=== PATIENT | female | born 1955 | race African-American/Black ===

== ENCOUNTER → 2016-12-31 | Outpatient (CLI) | payer MEDICARE ==
[~2016-12-31] MED LIST: AMLO5TAB2 PO; ASPI-482 PO; ATOR10TA60 PO; DICL1PAT4 TP; DICL75TA PO; IOHEXOL 180 MG/ML 10 ML VIAL. ONE; LEVE500T6 PO; LOSA1TAB17 PO; METH-37 PO; PREG100C PO; methylPREDNISolone ACETATE 40 MG/ML VIAL. ONE; methylPREDNISolone ACETATE 80 MG/ML VIAL. ONE
--- NOTE | 2017-01-01 12:11 | PAIN ---
DATE OF SERVICE: 12/31/2016 PROGRESS NOTE FOR PAIN CLINIC DIAGNOSES: Lumbar radiculopathy with lumbar degenerative disk disease. HISTORY OF PRESENT ILLNESS: The patient is a 61-year-old female who returns for followup status post lumbar epidural steroid injections, most recently seen in 07/2016. The patient did very well with approximately 75% improvement for about 4 months but the pain has began to return now on the low back, right lower extremity, it was previously the patient reports that 10 on a scale of 10, worse with standing and worse with walking, has awakened her from sleep at night when she lays on her right side, radiating into the right lateral and anterior thigh to the medial lower leg and medial knee. The patient reports significant pain with changing positions, standing, walking and even sitting for prolonged periods and even driving in her car more than about an hour, the pain is beginning to return much more noticeable. The patient reports no symptoms on the left side with significant pain on the right as noted. The patient reports no loss of motor function. No bowel or bladder incontinence at this time or other complaints. PAST MEDICAL HISTORY: Significant for diabetes, hypertension, history of blood clots and seizures. PREVIOUS SURGERY: Include ablation in 2003. MEDICATIONS: The patient's medications were updated including, metformin, Lyrica, atorvastatin, diclofenac, Robaxin, Flector patch, losartan, daily baby aspirin, levetiracetam and amlodipine. ALLERGIES: THE PATIENT ALLERGIC TO MORPHINE, PENICILLIN, KEFLEX, ELAVIL AND TRAMADOL. FAMILY HISTORY: Significant for no major medical problems or conditions that she is aware of. SOCIAL HISTORY: The patient does not smoke, does not drink alcohol, reports she is still working and still lives locally. PHYSICAL EXAMINATION: VITAL SIGNS: The patient's blood pressure is 120/67, pulse 72, respirations 18, temperature 97.8 degrees Fahrenheit, weight is 239 pounds. GENERAL: The patient is awake, alert, oriented, appropriate, very pleasant demeanor. HEENT: Head shows normocephalic, atraumatic. Extraocular movements are intact and symmetrical. Oral cavity shows mucous membranes moist and pink. Dentition is intact. NECK: Shows anterior throat supple without asymmetry, without palpable lymphadenopathy noted and swallow reflex is symmetrical. CHEST: Shows normal on inspection. Breath sounds are clear to auscultation bilaterally. HEART: Shows S1 and S2 clear. No murmurs are auscultated. ABDOMEN: Soft, nontender, and nondistended. No palpable organomegaly. No rebound or guarding demonstrated. BACK: The patient's back shows spine grossly in midline. Normal appearing thoracic kyphosis and lumbar lordotic curvature. Lumbar paraspinous musculature shows some moderate tenderness with palpation, but diffusely only with deep palpation in the lower lumbar distribution, no radiation. There are no trigger points, no tenderness over the sacrum or sacroiliac regions. The patient shows good rotational motion of the lumbar spine, both laterally greater than 10 degrees right and left as well as extension greater than 10 degrees, and forward flexion at 45 degrees without significant pain reported. EXTREMITIES: The patient's lower extremities showed deep tendon reflexes at 1+ in the patellar and tendocalcaneus tendons. Motor exam is strong with 4/5 dorsiflexion and extension on the right and 5/5 on the left. Quadriceps and hamstring flexion was 5/5 and equal. Peripheral pulses are 1+ posterior tibial and dorsalis pedis pulses. No peripheral edema is noted. No clubbing, no cyanosis. Lower extremities are warm and dry to touch, equal in color and appearance. Straight leg raise noted to be mildly positive on the right side at about 45 degrees, which is decreased with knee flexion, left side is negative. Options were discussed with the patient and we will proceed with a lumbar epidural steroid injection today with fluoroscopic guidance as the patient has done very well with these in the past. Risks were again discussed including, but not limited to bleeding, infection, possibility of epidural hematoma and subsequent neurologic compromise, dural puncture, headaches, spinal cord and/or nerve damage, side effects of steroid medication and poor results regarding pain control. The patient understands and wishes to proceed. The patient will return to clinic in approximately 2 weeks for followup, counseled on return appointment, activity level, and side effects to be aware. DIAGNOSES: Lumbar radiculopathy with lumbar degenerative disk disease. PROCEDURE: Lumbar epidural steroid injection in translaminar approach at the L4-L5 level using C-arm fluoroscopic guidance under sterile prep and drape using local anesthetic. MEDICATIONS INJECTED: 120 mg Depo-Medrol plus 10 mL of preservative-free normal saline and 2 mL of Isovue for contrast. CONDITION AT DISCHARGE: Stable. The patient tolerated procedure well, had no complications. MARRY ROSE MD DR: Trevor JOB#: [id number] / [id number]
== END ==
LOC: PNCL 11:09
PROVIDERS: ATTEND Anesthesiology
DX: M51.16 Intervertebral disc disorders with radiculopathy, lumbar region (principal); E11.9 Type 2 diabetes mellitus without complications; I10 Essential (primary) hypertension
CPT/HCPCS: 62323; J1030; J1040

== ENCOUNTER → 2017-01-24 | Outpatient (CLI) | payer MEDICARE ==
[~2017-01-24] MED LIST changes: +METF500T4 PO; +PREG150C PO
--- NOTE | 2017-01-24 10:14 | PAIN ---
DATE OF SERVICE: 01/24/2017 DIAGNOSES: Lumbar radiculopathy with lumbar degenerative disk disease. HISTORY OF PRESENT ILLNESS: The patient is a 61-year-old female, who returns for followup status post lumbar epidural steroid injection x 1. The patient reports about 75% improvement until about a week ago, she was raking some leaves ____ for most of the day and lateral bending and stooping is increased pain again in her low back and right lower extremity, mostly in the lateral aspect of the right thigh across the low back into the left side of the back as well, has been significantly increased in the raking leaves, but the patient reports no new motor or sensory deficits, no new bowel or bladder incontinence or other complaints, still increased pain, worse with walking, standing, describes as stabbing, aching pain rated 10 on a scale 10 since the raking ____ and burning down into the legs, some in the left leg as well. PHYSICAL EXAMINATION: VITAL SIGNS: Shows blood pressure 114/68, pulse 77, respirations 18, temperature is 97.8 degrees Fahrenheit, weight is 249 pounds. GENERAL: The patient is awake, alert, oriented, appropriate, very pleasant demeanor. HEENT: Head shows normocephalic, atraumatic. Extraocular movements are intact and symmetrical. Oral cavity, mucous membranes are moist and pink. Dentition is intact. NECK: Shows anterior throat supple without palpable lymphadenopathy noted. Swallow reflex is symmetrical. CHEST: Shows normal on inspection. Breath sounds clear to auscultation bilaterally. HEART: Shows S1 and S2 clear. ABDOMEN: Obese, soft, nontender, nondistended. BACK: Shows spine grossly midline. Lumbar paraspinous muscle shows some moderate tenderness with palpation and very firm musculature throughout the upper, middle, lower distribution of paraspinous muscles, but without significant radiation. Muscle girth is normal, but very firm and again diffusely tender throughout. No tenderness over the sacrum and sacroiliac regions. EXTREMITIES: Lower extremities showed deep tendon reflexes at 1+ in the patellar and tendo calcaneus tendons are equal. Motor exam is approximately 4 on a scale of 5 with right dorsiflexion, extension and 5/5 on the left. Options were discussed with the patient and the patient's old chart was reviewed as her current medication regimen updated. Current review of systems updated today as well. We will proceed with a second lumbar epidural steroid injection today with fluoroscopic guidance. Risks were then discussed including, but not limited to bleeding, infection, possibility of epidural hematoma and subsequent neurologic compromise, dural puncture, headaches, spinal cord and/or nerve damage, side effects of steroid medication, exacerbation of current symptoms and poor results regarding pain control. The patient understands and wishes to proceed. The patient will return to clinic in approximately 2 weeks for followup, was counseled on return appointment, activity level and side effects to be aware of. DIAGNOSES: Lumbar radiculopathy with lumbar degenerative disk disease. PROCEDURE: Lumbar epidural steroid injection in translaminar approach at the L4-L5 level, using C-arm fluoroscopic guidance under sterile prep and drape and local anesthesia. MEDICATION INJECTED: 120 mg Depo-Medrol plus 10 mL preservative-free normal saline and 2 mL of Isovue for contrast. CONDITION AT DISCHARGE: Stable. The patient tolerated the procedure well, had no complications. MARRY ROSE MD DR: SHARON/jessenia JOB#: [id number] / [id number]
== END | disposition home or self-care (01) ==
LOC: PNCL 08:54
PROVIDERS: ATTEND Anesthesiology
DX: M51.16 Intervertebral disc disorders with radiculopathy, lumbar region (principal)
CPT/HCPCS: 62323; J1030; J1040

== ENCOUNTER → 2017-02-27 | Day surgery (SDC) | payer MEDICARE ==
[~2017-02-27] MED LIST changes: -IOHEXOL 180 MG/ML 10 ML VIAL. ONE; +IV RINGERS,LACTATED 1000ML 1,000 ML IV SCH; +PROPOFOL 40 ML IV ONE; +[UNRECOGNIZED DRUG - OTHER]; -methylPREDNISolone ACETATE 40 MG/ML VIAL. ONE; -methylPREDNISolone ACETATE 80 MG/ML VIAL. ONE
[2017-02-27 14:48] VITALS: BP 123/77
== END | disposition home or self-care (01) ==
LOC: ENDOS 13:02
PROVIDERS: ATTEND Internal Medicine Gastroenterology
DX: K64.0 First degree hemorrhoids (principal); K57.30 Diverticulosis of large intestine without perforation or abscess without bleeding; K56.2 Volvulus; K22.2 Esophageal obstruction; E66.9 Obesity, unspecified; M19.90 Unspecified osteoarthritis, unspecified site; Z98.51 Tubal ligation status
CPT/HCPCS: 43235; 43450; 45378; 82947; 99156; J2704

== ENCOUNTER → 2017-04-17 | Outpatient (CLI) | payer MEDICARE ==
[2017-02-27 14:48] VITALS: BP 123/77
[~2017-04-17] MED LIST changes: -DICL1PAT4 TP; +FLECTOR1 EACH TP; +IOHEXOL 180 MG/ML 10 ML VIAL. ONE; -IV RINGERS,LACTATED 1000ML 1,000 ML IV SCH; -PROPOFOL 40 ML IV ONE; +methylPREDNISolone ACETATE 40 MG/ML VIAL. ONE; +methylPREDNISolone ACETATE 80 MG/ML VIAL. ONE
--- NOTE | 2017-04-18 02:13 | PAIN ---
DATE OF SERVICE: 04/17/2017 PROGRESS NOTE FOR PAIN CLINIC DIAGNOSES: Lumbar radiculopathy with lumbar degenerative disk disease. HISTORY OF PRESENT ILLNESS: This is 61-year-old female who returns for followup status post lumbar epidural steroid injections x 2, last seen on 01/24/2017. The patient did very well and reports she did remarkably well with the pain in her low back and right lower extremity until about 3 weeks ago, the pain began to return and is about 75% of its original value and returning. The patient reports originally it was 75% better. Now she is having increased pain with walking, standing. It is a stabbing pain, shooting type alternating with aching and sharp pain coming on more unbearable. The patient reports it as a 10 on a scale of 10 at its worst, as a 7 at its least. The patient reports it has been awakening her from sleep at night. She has to reposition, take pain medicine at night, otherwise no new motor or sensory deficits or other complaints. PHYSICAL EXAMINATION: VITAL SIGNS: The patient's blood pressure is 123/73, pulse 84, respirations are 20, temperature 97.8 degrees Fahrenheit, and weight is 241 pounds. GENERAL: The patient is awake, alert, oriented, appropriate, very pleasant demeanor. HEENT: Head shows normocephalic, atraumatic. Extraocular movements are intact and symmetrical. Oral cavity, mucous membranes are moist and pink. Dentition is intact. NECK: Shows anterior throat supple without palpable lymphadenopathy noted. Swallow reflex is symmetrical. CHEST: Shows normal on inspection. Breath sounds clear to auscultation bilaterally. HEART: Shows S1 and S2 clear. ABDOMEN: Obese, soft, nontender, nondistended. No palpable organomegaly, no rebound or guarding demonstrated. BACK: Shows spine grossly midline. Lumbar paraspinous muscle shows some moderate tenderness with palpation, but symmetrical on inspection. The patient shows good rotational motion of the lumbar spine, both laterally as well as extension and flexion without significant pain reported, but some moderate tenderness with palpation in the lower lumbar distribution of paraspinous muscles diffusely without radiation. EXTREMITIES: Lower extremities show deep tendon reflexes 1+ in the patellar and tendo calcaneus tendons. Motor exam is strong with approximately 4/5 on the right and 5/5 dorsiflexion and extension. Options were discussed with the patient and the patient's old chart was reviewed as her current medication regimen updated. Current review of systems updated today as well. We will proceed today with the third in the series of lumbar epidural steroid injection with fluoroscopic guidance. Risks were discussed including, but not limited to, bleeding, infection, possibility of epidural hematoma and subsequent neurologic compromise, dural puncture, headaches, spinal cord and/or nerve damage, side effects of steroid medication and poor results regarding pain control. The patient understands and wishes to proceed. The patient will return to clinic in approximately 2 weeks for followup. She was counseled on return appointment, activity level and side effects to be aware of. DIAGNOSIS: Lumbar radiculopathy with lumbar degenerative disk disease. PROCEDURES: Lumbar epidural steroid injection in translaminar approach at the L4-L5 level. MEDICATIONS INJECTED: A total of 120 mg Depo-Medrol plus 10 mL of preservative free normal saline and 2 mL of Isovue for contrast. CONDITION AT DISCHARGE: Stable. The patient tolerated the procedure well, had no complications. MARRY ROSE MD DR: SHARON/jessenia JOB#: [id number] / [id number]
== END | disposition home or self-care (01) ==
LOC: PNCL 13:36
PROVIDERS: ATTEND Anesthesiology
DX: M51.16 Intervertebral disc disorders with radiculopathy, lumbar region (principal); I10 Essential (primary) hypertension; E66.9 Obesity, unspecified; Z68.43 Body mass index [BMI] 50.0-59.9, adult; K21.9 Gastro-esophageal reflux disease without esophagitis; M19.90 Unspecified osteoarthritis, unspecified site; Z98.51 Tubal ligation status; Z86.69 Personal history of other diseases of the nervous system and sense organs; Z86.39 Personal history of other endocrine, nutritional and metabolic disease; Z88.6 Allergy status to analgesic agent; Z88.1 Allergy status to other antibiotic agents; Z88.0 Allergy status to penicillin; Z88.8 Allergy status to other drugs, medicaments and biological substances
CPT/HCPCS: 62323; J1030; J1040

== ENCOUNTER → 2017-06-03 | Outpatient (CLI) | payer MEDICARE ==
[2017-02-27 14:48] VITALS: BP 123/77
--- NOTE | 2017-06-03 12:07 | PAIN ---
DATE OF SERVICE: 06/03/2017 PROGRESS NOTE FOR PAIN CLINIC DIAGNOSES: Lumbar radiculopathy with lumbar degenerative disk disease. HISTORY OF PRESENT ILLNESS: The patient is a 61-year-old female who returns for followup status post lumbar epidural steroid injections. The patient is with good improvement of about 25% after her last injection. Reports that the pain has flared up; however, the last injection was on 04/17/2017. The patient reports there is increasing pain in low back radiating to the posterior lateral aspect of the thigh on the right side, radiating to medial thigh, medial lower leg and posterior lower leg on the right side, rate is ranging from a 7-10 on a scale of 10, is currently 7 today, radiating, constant, unbearable, severe, sharp alternating with dull. The patient did go to the Emergency Room over the weekend, but was discharged after some IV medication was given. The patient reports otherwise pain is becoming much worse with weightbearing on the right side, radiating further down the leg into the lower leg, becoming very painful, difficulty sleeping at night ____. She has to reposition and change positions to get back to sleep. The patient has had 2 Medrol Dosepak in the last few months, which only helped a small amount. The patient reports right leg is still painful and numb, difficulty raising ____ bringing down to tie her shoes or trying to cross her legs. It is becoming very difficult and more painful. The patient reports no new motor or sensory deficits; however, no sensory loss. No bowel or bladder incontinence. PHYSICAL EXAMINATION: VITAL SIGNS: The patient's blood pressure 124/68, pulse 74, respirations 18, temperature 98.1 degrees Fahrenheit, weight is 246 pounds. GENERAL: The patient is awake, alert, oriented, appropriate, very pleasant demeanor. HEENT: Head shows normocephalic, atraumatic. Extraocular movements are intact and symmetrical. Oral cavity shows mucous membranes moist and pink. Dentition is intact. NECK: Shows anterior throat supple without palpable lymphadenopathy noted. Swallow reflex is symmetrical. CHEST: Shows normal on inspection. Breath sounds are clear to auscultation bilaterally. HEART: Shows S1 and S2 clear. ABDOMEN: Soft, nontender, nondistended. No palpable organomegaly. No rebound or guarding demonstrated. BACK: Shows spine grossly in the midline. Lumbar paraspinous muscle shows firm and tender with palpation, but only diffusely. The patient shows good rotational motion both laterally as well as extension and flexion of lumbar spine without significant difficulty or pain reported. EXTREMITIES: Lower extremities showed deep tendon reflexes 1+ in the patellar and tendo calcaneus tendons are equal. Motor exam is approximately 4 on a scale of 5 with right dorsiflexion, extension, quadriceps and hamstring flexion 5/5 on the left. Peripheral pulses are 1+, posterior tibial and dorsalis pedis pulses. No peripheral edema is noted bilaterally. Options were discussed with the patient and the patient's old chart was reviewed as her current medication regimen updated. Current review of systems updated today as well. We will proceed with a first in this series of lumbar epidural steroid injection using fluoroscopic guidance. Risks were again discussed including, but not limited to bleeding, infection, possibility of epidural hematoma, subsequent neurologic compromise, dural puncture, headaches, spinal cord and/or nerve damage, side effects of steroid medication and poor results regarding pain control. The patient understands and wishes to proceed. The patient will return to clinic in approximately 2 weeks for followup, was counseled on return appointment, activity level and side effects to be aware of. DIAGNOSIS: Lumbar radiculopathy with lumbar degenerative disk disease. PROCEDURE: Lumbar epidural steroid injection in translaminar approach L4-L5 level using C-arm fluoroscopic guidance under sterile prep and drape using a local anesthetic. MEDICATIONS INJECTED: A total of 120 mg Depo-Medrol plus 10 mL of preservative free normal saline and 2 mL of Isovue for contrast. CONDITION AT DISCHARGE: Stable. The patient tolerated procedure well, had no complications. MARRY ROSE MD DR: SHARON/jessenia JOB#: [id number] / [id number]
== END | disposition home or self-care (01) ==
LOC: PNCL 09:00
PROVIDERS: ATTEND Anesthesiology
DX: M51.16 Intervertebral disc disorders with radiculopathy, lumbar region (principal); Z86.69 Personal history of other diseases of the nervous system and sense organs; I10 Essential (primary) hypertension; E66.9 Obesity, unspecified; Z68.43 Body mass index [BMI] 50.0-59.9, adult; K21.9 Gastro-esophageal reflux disease without esophagitis; Z87.39 Personal history of other diseases of the musculoskeletal system and connective tissue; M19.90 Unspecified osteoarthritis, unspecified site; Z86.39 Personal history of other endocrine, nutritional and metabolic disease; E11.9 Type 2 diabetes mellitus without complications; Z88.6 Allergy status to analgesic agent; Z88.1 Allergy status to other antibiotic agents; Z88.0 Allergy status to penicillin; Z88.8 Allergy status to other drugs, medicaments and biological substances
CPT/HCPCS: 62323; J1030; J1040

== ENCOUNTER → 2017-06-10 | Outpatient (CLI) | payer MEDICARE ==
[2017-02-27 14:48] VITALS: BP 123/77
[~2017-06-10] MED LIST changes: +BUPIVACAINE MPF 0.25% 10 ML VIAL. ONE
--- NOTE | 2017-06-10 09:56 | PAIN ---
DATE OF SERVICE: 06/10/2017 PROGRESS NOTE FOR PAIN CLINIC DIAGNOSES: Lumbar radiculopathy with lumbar degenerative disk disease and lumbar spondylosis. HISTORY OF PRESENT ILLNESS: The patient is a 61-year-old female who returns for followup status post lumbar epidural steroid injection x 1, last seen 06/03/2017. The patient called yesterday with significant pain, increasing pain in the low back and right hip, also with some radiating pain into the right lower extremity as it was previously. The patient reports that the shot did not help much with last injection 7 days ago. Rates her pain a 10 on a scale of 10, describes it radiating, constant, severe, unbearable, numbness, dull, sharp and shooting into the right leg where she is having difficulty bearing weight on it. The patient also has some significant back pain, worse with extension of the spine as well as rotation to the right, which she has had previously, but this has become worse as well. The patient reports it is awakening her from sleep. She is not getting any sleep secondary to the pain by her report. Reports no new motor or sensory deficits, but significant weakness in the right leg making it difficult for her to work as well as walk or get around daily activities. PHYSICAL EXAMINATION: VITAL SIGNS: The patient's blood pressure 138/69, pulse 71, respirations are 18, temperature is 97.9 degrees Fahrenheit, weight is 245 pounds. GENERAL: The patient is awake, alert, oriented, appropriate, very pleasant demeanor. HEENT: Shows normocephalic, atraumatic. Extraocular movements are intact, symmetrical. Oral cavity, mucous membranes are moist and pink. Dentition is intact. NECK: Shows anterior throat supple. Swallow reflex is symmetrical. CHEST: Shows normal on inspection. Breath sounds are clear to auscultation bilaterally. HEART: Shows S1 and S2 clear. ABDOMEN: Soft, nontender, nondistended. No palpable organomegaly. There is no rebound or guarding demonstrated. BACK: Shows spine grossly in the midline. Normal appearing thoracic kyphosis and lumbar lordotic curvature, slightly flattened, lumbar paraspinous muscle shows symmetrical on inspection. Palpation shows moderate tenderness throughout the lower right-sided distribution of the lumbar paraspinous muscles, but only diffusely without radiation. No tenderness over the sacrum or sacroiliac regions. The patient shows good rotational motion, but significant pain reported with right lateral rotation as well as extension, but not forward flexion or left lateral rotation. EXTREMITIES: Lower extremities showed deep tendon reflexes 1+ in the patellar and tendo-calcaneus tendons. Motor exam is approximately 4 on a scale of 5 with right dorsiflexion and extension and 5/5 on the left, quadriceps and hamstring flexion 3-4 on the right and 5/5 on the left. Options were discussed with the patient and the patient's old chart was reviewed as her current medication regimen updated. Current review of systems updated today as well. We will proceed with right-sided lumbar facet joints, right L4-L5 and L5-S1 levels with fluoroscopic guidance. Risks were again discussed including, but not limited to bleeding, infection, possibility of epidural hematoma, subsequent neurological compromise, dural punctures, headaches, spinal cord and/or nerve damage, side effects of steroid medication and poor results regarding pain control. The patient understands and wishes to proceed. The patient will return to clinic in approximately 1 week for followup. We will also order a repeat MRI scan as her most recent one was in 03/2016 as she has significant increasing weakness in her right leg. We will follow up and make sure that her L5-S1 disk osteophyte complexes not worsened as it was putting some mass effect on the right sciatic nerve roots at that time. DIAGNOSES: Lumbar radiculopathy with lumbar degenerative disk disease and lumbar spondylosis. PROCEDURES: Right-sided L4-L5 and L5-S1 lumbar facet joint injections using a C-arm fluoroscopic guidance under sterile prep and drape using local anesthetic. MEDICATIONS INJECTED: A total of 120 mg Depo-Medrol plus 2 mL of 0.25% bupivacaine and 2 mL of Isovue for contrast. CONDITION AT DISCHARGE: Stable. The patient tolerated procedure well, had no complications. MARRY ROSE MD DR: SHARON/jessenia JOB#: [id number] / [id number]
== END | disposition home or self-care (01) ==
LOC: PNCL 07:49
PROVIDERS: ATTEND Anesthesiology
DX: M51.16 Intervertebral disc disorders with radiculopathy, lumbar region (principal); M47.26 Other spondylosis with radiculopathy, lumbar region; I10 Essential (primary) hypertension; E66.9 Obesity, unspecified; Z68.43 Body mass index [BMI] 50.0-59.9, adult; K21.9 Gastro-esophageal reflux disease without esophagitis; E11.9 Type 2 diabetes mellitus without complications; M19.90 Unspecified osteoarthritis, unspecified site; Z98.51 Tubal ligation status; Z87.39 Personal history of other diseases of the musculoskeletal system and connective tissue; Z86.39 Personal history of other endocrine, nutritional and metabolic disease; Z86.69 Personal history of other diseases of the nervous system and sense organs; Z88.6 Allergy status to analgesic agent; Z88.0 Allergy status to penicillin; Z88.8 Allergy status to other drugs, medicaments and biological substances; Z91.048 Other nonmedicinal substance allergy status
CPT/HCPCS: 64493; 64494; J1030; J1040; J3490

== ENCOUNTER → 2017-06-16 | Outpatient (CLI) | payer OTHER, MEDICARE ==
[2017-02-27 14:48] VITALS: BP 123/77
[~2017-06-16] MED LIST changes: -BUPIVACAINE MPF 0.25% 10 ML VIAL. ONE; -IOHEXOL 180 MG/ML 10 ML VIAL. ONE; -methylPREDNISolone ACETATE 40 MG/ML VIAL. ONE; -methylPREDNISolone ACETATE 80 MG/ML VIAL. ONE
--- NOTE | 2017-06-16 10:24 | RAD ---
MR LUMBAR SPINE HISTORY: LBP WITH LEFT LEG RADICULOPATHY, NO SX HX, NO PRIORS Technique: Sagittal T2, sagittal STIR, and sagittal T1-weighted images were obtained. Additional axial T1 and T2 weighted imaging was also performed. FINDINGS: Alignment and curvature are within normal limits. No compression fracture or deformity. There are Modic type II endplate degenerative changes at L5-S1. Bone marrow signal is otherwise within normal limits. The conus terminates normally at the level of L1. At L5-S1 there is moderate disc height loss with Modic type II degenerative endplate changes. There is also mild facet arthropathy bilaterally. Osteophytic encroachment abuts the exiting right L1 V nerve. Correlate for possible right L5 radiculopathy symptoms. L4-L5 there is facet arthropathy with ligamentum flavum thickening. A small osteophyte in the right foramen abuts the exiting right L4 nerve but does not appear to cause mass effect upon it. At L3-L4 there is ligamentum flavum thickening and facet arthropathy but no significant central spinal or neural foraminal stenosis. At L2-L3 there is mild facet arthropathy but no spinal stenosis. IMPRESSION: Multilevel facet arthropathy. Degenerative disc disease at L5-S1 where there is [id number] right foraminal stenosis. Correlate for possible right L5 radiculopathy symptoms. Electronically signed by: Brett Can MD (06/16/2017 10:20 AM) [place] [id number]
== END | disposition home or self-care (01) ==
LOC: MRI 08:49
PROVIDERS: ATTEND Anesthesiology
DX: M54.16 Radiculopathy, lumbar region (principal)
CPT/HCPCS: 72148

== ENCOUNTER → 2017-06-24 | Outpatient (CLI) | payer OTHER, MEDICARE ==
[2017-02-27 14:48] VITALS: BP 123/77
[~2017-06-24] MED LIST changes: +BUPIVACAINE MPF 0.25% 10 ML VIAL. ONE; +IOHEXOL 180 MG/ML 10 ML VIAL. ONE; +methylPREDNISolone ACETATE 40 MG/ML VIAL. ONE; +methylPREDNISolone ACETATE 80 MG/ML VIAL. ONE
--- NOTE | 2017-06-24 16:31 | PN ---
DATE: 06/24/2017 DIAGNOSES: Lumbar radiculopathy with lumbar degenerative disk disease and lumbar spondylosis with lumbosacral spondylosis. HISTORY OF PRESENT ILLNESS: The patient is a 61-year-old female who returns for followup status post previous lumbar epidural steroid injections and on her last visit June 10, 2017, the patient had a right-sided L4-L5 and L5-S1 facet joint injections. The patient reports today she has about 50% improvement initially, now about 40% improved with pain in the right side of the leg with radiation to the right lateral posterior ____ and mostly across the low back. The patient reports no new motor or sensory deficits, but was much better after the last injection. We also order MRI scan of the lumbar spine showing 2 levels of osteophytes abutting the right L4 and the right L5 nerve roots without significant displacement or mass effect, but encroachment in both these levels on the right side with some radicular pain as well involved. The patient reports her pain is a 10 on a scale of 10 at it is worst, it is a 7 currently ____. The patient reports it awakens her from sleep about 2-3 times at night, difficulty with driving a car, using a right leg as she is having to assist her leg with her right hand with pressing on brake pedal at times. The patient reports it is not constant, but has done this a couple times since her last visit. The patient reports no new motor or sensory deficits or other complaints. PHYSICAL EXAMINATION: VITAL SIGNS: Today, the patient's blood pressure is 134/74, pulse 69, respirations 18, temperature 97.8 degrees Fahrenheit. Weight is 239 pounds. GENERAL: The patient is awake, alert, oriented, appropriate, very pleasant demeanor. HEENT: Head shows normocephalic, atraumatic. Extraocular movements are intact and symmetrical. Oral cavity has mucous membranes moist and pink. Dentition is intact. NECK: Shows anterior throat supple. Swallow reflex is symmetrical. CHEST: Shows normal on inspection. Breath sounds are clear to auscultation bilaterally. HEART: Shows S1 and S2 clear. ABDOMEN: Soft, nontender, nondistended. No palpable organomegaly is noted. No rebound or guarding demonstrated. BACK: Shows spine grossly midline. Lumbar paraspinous muscle shows some moderate tenderness with palpation in the bilateral lower distribution of the paraspinous muscles, it was slightly worse on the right than the left, but without radiation. The patient has good rotational motion with some minor tenderness in the right side with extension, but not with flexion. EXTREMITIES: Lower extremities showed deep tendon reflexes 1+ in the patellar and tendo calcaneus tendons. Motor exam is approximately 4 on a scale of 5 on the right and 5/5 on the left. Options were discussed with the patient and the patient's old chart was reviewed and her current medication regimen updated. Current review of systems updated today as well. We will proceed with a right-sided repeat L4-L5 and L5-S1 facet joint injections with fluoroscopic guidance. Risks were again discussed including, but not limited to bleeding, infection, possibility of epidural hematoma and subsequent neurologic compromise, dural puncture, headaches, spinal cord and/or nerve damage, side effects of steroid medication and poor results regarding pain control. The patient understands and wishes to proceed. The patient will return to clinic in approximately 2 weeks for followup. She was counseled on return appointment, activity level, and side effects to be aware of. Also discussed possibility of neurosurgical evaluation if not significantly improved as she does have some encroaching osteophytes at the L4 and L5 levels on the right. The patient understands and agrees. DIAGNOSIS: Lumbar spondylosis both lumbar and lumbosacral. PROCEDURE: Right-sided L4-L5 and L5-S1 facet joint injections with C-arm fluoroscopic guidance, under sterile prep and drape using local anesthetic. MEDICATION INJECTED A total of 120 mg Depo-Medrol plus 2 mL of 0.25% bupivacaine and 2 mL of Isovue for contrast. CONDITION AT DISCHARGE: Stable. The patient tolerated procedure well, had no complications. MARRY ROSE MD DR: SHARON/jessenia JOB#: [id number] / [id number]
== END | disposition home or self-care (01) ==
LOC: PNCL 09:59
PROVIDERS: ATTEND Anesthesiology
DX: M51.16 Intervertebral disc disorders with radiculopathy, lumbar region (principal); M47.27 Other spondylosis with radiculopathy, lumbosacral region; I10 Essential (primary) hypertension; E66.9 Obesity, unspecified; Z68.43 Body mass index [BMI] 50.0-59.9, adult; K21.9 Gastro-esophageal reflux disease without esophagitis; M19.90 Unspecified osteoarthritis, unspecified site; E11.9 Type 2 diabetes mellitus without complications; Z87.39 Personal history of other diseases of the musculoskeletal system and connective tissue; Z86.69 Personal history of other diseases of the nervous system and sense organs; Z98.51 Tubal ligation status; Z88.6 Allergy status to analgesic agent; Z88.3 Allergy status to other anti-infective agents; Z88.0 Allergy status to penicillin
CPT/HCPCS: 64493; 64494; J1030; J1040; J3490

== ENCOUNTER → 2017-08-01 | Outpatient (CLI) | payer OTHER ==
[2017-02-27 14:48] VITALS: BP 123/77
[~2017-08-01] MED LIST changes: +OXYC-323 PO
--- NOTE | 2017-08-02 05:13 | PAIN ---
DATE OF SERVICE: 08/01/2017 DIAGNOSES: 1. Lumbar radiculopathy with lumbar degenerative disk disease. 2. Lumbar spondylosis with lumbar and lumbosacral spondylosis. HISTORY OF PRESENT ILLNESS: The patient is an 62-year-old female who returns for followup status post both lumbar epidural steroid injections with about 75% improvement and right facet joint injections with about 60% improvement. The patient reports that the facet joint seemed to help the pain better in her low back on the right side than the injections prior to that. The patient reports no new motor or sensory deficits. She did fall on her right side about a week ago, which increased her pain to a significant extent in the right hip and right leg. 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 Also cut her right elbow open, which she has a significant scab on now. The patient reports the pain in her back has been worse since there is a sharp, tight, shooting, radiating, constant; can be unbearable at times. The patient reports it is an 8 on a scale of 10 at its worst, 7 on an average, and 6 at least. The patient reports no new motor or sensory deficits; however. We had asked for a neurosurgical evaluation as well, as the patient has significant osteophytic encroachment at the L5-S1 level abutting the right L5-S1 nerve root, and this may eventually need some surgical attention. The patient reports otherwise the pain in the back has been improved after the facet injections, but it is returning now after her fall. The patient reports no new motor or sensory deficits, no new bowel or bladder incontinence or other complaints. PHYSICAL EXAMINATION: VITAL SIGNS: Today, the patient's blood pressure is 140/80, pulse 76, respirations 18, temperature 97.8 degrees Fahrenheit, height is 5 feet 8 inches, weighs 240 pounds. GENERAL: The patient is awake, alert, oriented, appropriate, very pleasant demeanor. HEENT: Shows normocephalic, atraumatic. Extraocular movements are intact, symmetrical. Oral cavity, mucous membranes are moist and pink. Dentition is intact. NECK: Shows anterior throat supple without palpable lymphadenopathy noted. Swallow reflex is symmetrical. CHEST: Shows normal on inspection. Breath sounds are clear to auscultation bilaterally. HEART: Shows S1, S2 clear. No murmurs auscultated. ABDOMEN: Soft, nontender, nondistended. No palpable organomegaly. No rebound or guarding demonstrated. BACK: Shows spine grossly midline. The patient's back shows lumbar paraspinous musculature is symmetrical in the lumbar distribution, but with palpation shows moderate tenderness in the middle and lower distributions, slightly more on the right than the left, but only diffusely without radiation. No tenderness over the spinous processes, sacrum or sacroiliac regions. EXTREMITIES: Lower extremities showed deep tendon reflexes 1+ in the patellar and talocalcaneal tendons. Motor exam is approximately 4 on a scale of 5 with right dorsiflexion, extension, quadriceps and hamstring flexion; 5/5 on the left. Peripheral pulses are 1+ posterior tibia. No peripheral edema is noted. RECOMMENDATIONS: Options were discussed with the patient. We will proceed with a repeat right-sided L4-L5 and L5-S1 facet joint injections with fluoroscopic guidance. Risks were again discussed including, but not limited to bleeding, infection, possibility of epidural hematoma and subsequent neurologic compromise, dural punctures, headaches, spinal cord and/or nerve damage, side effects of steroid medication and poor results regarding pain control. The patient understands and wishes to proceed. The patient will return to clinic in approximately 2 weeks for followup. She was counseled on return appointment, activity level and side effects to be aware of. DIAGNOSES: Lumbar spondylosis and lumbosacral spondylosis. PROCEDURE: Right-sided L4-L5 and L5-S1 facet joint injections using C-arm fluoroscopic guidance under sterile prep and drape using local anesthetic. Medication injected is total of 2 mL of 0.25% bupivacaine, 1 mL at each level and each facet, and a total of 120 mg Depo-Medrol, 60 mg at each level, after negative aspiration, and a total of 2 mL of Isovue for contrast. CONDITION AT DISCHARGE: Stable. The patient tolerated procedure well, had no complications. MARRY ROSE MD DR: SHARON/jessenia JOB#: [id number] / [id number]
== END | disposition home or self-care (01) ==
LOC: PNCL 11:06
PROVIDERS: ATTEND Anesthesiology
DX: M47.26 Other spondylosis with radiculopathy, lumbar region (principal); M51.16 Intervertebral disc disorders with radiculopathy, lumbar region; I10 Essential (primary) hypertension; E66.9 Obesity, unspecified; K21.9 Gastro-esophageal reflux disease without esophagitis; M19.91 Primary osteoarthritis, unspecified site; E11.9 Type 2 diabetes mellitus without complications; Z87.39 Personal history of other diseases of the musculoskeletal system and connective tissue; Z86.69 Personal history of other diseases of the nervous system and sense organs; Z98.51 Tubal ligation status; Z86.39 Personal history of other endocrine, nutritional and metabolic disease; Z88.6 Allergy status to analgesic agent; Z88.0 Allergy status to penicillin; Z88.8 Allergy status to other drugs, medicaments and biological substances
CPT/HCPCS: 64493; 64494; J1030; J1040; J3490

== ENCOUNTER → 2017-10-02 | Outpatient (CLI) | payer OTHER ==
[2017-02-27 14:48] VITALS: BP 123/77
[~2017-10-02] MED LIST changes: -BUPIVACAINE MPF 0.25% 10 ML VIAL. ONE; -LOSA1TAB17 PO; +LOSA1TAB22 PO
--- NOTE | 2017-10-02 18:03 | PAIN ---
DATE OF SERVICE: 10/02/2017 DIAGNOSES: Lumbar radiculopathy with lumbar degenerative disk disease and lumbar spondylosis. HISTORY OF PRESENT ILLNESS: The patient is a 62-year-old female who returns for followup status post lumbar epidural steroid injections as well as the right-sided facet joint injections. The patient reports she is doing very well with about a 90% improvement in her low back and right low back pain. The patient reports she was raking some leaves about a week ago, was bagging them and picking them up with a lot of bending and flexing and stooping, and had significant pain across both sides of low back, radiating to both sides of the posterolateral thigh, lateral anterior thighs, essentially right equal to left. The patient reports no loss of motor function, but significant pain, worse with walking, standing, bending, better with lying down or in a reclining chair. The patient reports it does not awaken her from sleep, but she feels much better with lying down. The pain is across the low back, both sides now, into the legs bilaterally. The patient reports a sharp, tight, dull, alternating, stabbing, radiating and becoming more severe. The patient reports it is a 6 on a scale of 10; average is a 5 at its least; 6 at its most, 6 on average and is a 6 today. The patient reports no new motor or sensory deficits, no new bowel or bladder incontinence, but still significant pain as noted. PHYSICAL EXAMINATION: VITAL SIGNS: The patient's blood pressure 125/78, pulse 71, respirations 18, temperature 98.2 degrees Fahrenheit. Height 5 feet 8 inches, weight is 245 pounds. GENERAL: The patient is awake, alert, oriented, appropriate, very pleasant demeanor. HEENT: Head shows normocephalic, atraumatic. Extraocular movements are intact, symmetrical. Oral cavity: Mucous membranes moist and pink. Dentition is intact. NECK: Shows anterior throat supple without palpable lymphadenopathy noted. Swallow reflex symmetrical. CHEST: Shows normal with inspection. Breath sounds are clear to auscultation bilaterally. HEART: Shows S1, S2 clear. No murmurs auscultated. ABDOMEN: Soft, nontender, nondistended. No palpable organomegaly. No rebound or guarding demonstrated. BACK: The patient's back shows spine grossly midline. Slight exaggeration of thoracic kyphosis and mild flattening of lumbar lordotic curvature. No asymmetry or atrophy, or hypertrophy noted. The lumbar paraspinous muscles on inspection with palpation shows some moderate tenderness bilaterally in the lower lumbar distribution, slightly more on the right than the left, but present bilaterally. The patient has good rotational motion with only minor tenderness with right lateral rotation and left lateral rotation, but not with extension and not with forward flexion on exam today. No tenderness over the sacrum or sacroiliac regions with palpation. EXTREMITIES: Lower extremities show deep tendon reflexes at 1+ in the patellar and tendo calcaneus tendons. Motor exam is approximately 4 on a scale 5 on the right lower extremity and 5/5 on the left with dorsiflexion and extension. Peripheral pulses are 1+ posterior tibial bilaterally. No peripheral edema is noted. Options were discussed with the patient. The patient's old chart was reviewed and her current medication regimen updated. Current review of systems updated today as well. We will proceed with a lumbar epidural steroid injection today, the first in this series with fluoroscopic guidance. Risks were discussed including but not limited to bleeding, infection, possibility of epidural hematoma and subsequent neurological compromise, dural puncture, headaches, spinal cord and/or nerve damage, side effects of steroid medication and poor results regarding pain control. The patient understands and wished to proceed. The patient will return to clinic in approximately 2 weeks for followup. She was counseled as to return appointment, activity level, and side effects to be aware of. DIAGNOSES: Lumbar radiculopathy with lumbar degenerative disk disease and lumbar spondylosis. PROCEDURE: Lumbar epidural steroid injection, translaminar approach L4-L5 level using C-arm fluoroscopic guidance under sterile prep and drape using local anesthetic. MEDICATION INJECTED: A total of 120 mg Depo-Medrol plus 10 mL of preservative-free normal saline and 2 mL Isovue for contrast. CONDITION AT DISCHARGE: Stable. The patient tolerated procedure well, had no complications. MARRY ROSE MD DR: SHARON/jessenia JOB#: [id number] / [id number]
== END | disposition home or self-care (01) ==
LOC: PNCL 09:04
PROVIDERS: ATTEND Anesthesiology
DX: M51.16 Intervertebral disc disorders with radiculopathy, lumbar region (principal); M47.26 Other spondylosis with radiculopathy, lumbar region; Z88.0 Allergy status to penicillin; Z88.6 Allergy status to analgesic agent; Z88.1 Allergy status to other antibiotic agents; Z88.8 Allergy status to other drugs, medicaments and biological substances; R56.9 Unspecified convulsions; I10 Essential (primary) hypertension; E66.9 Obesity, unspecified; K21.9 Gastro-esophageal reflux disease without esophagitis; Z98.51 Tubal ligation status; M19.90 Unspecified osteoarthritis, unspecified site; E11.9 Type 2 diabetes mellitus without complications
CPT/HCPCS: 62323; J1030; J1040

== ENCOUNTER → 2017-12-17 | Outpatient (CLI) | payer OTHER ==
[~2017-12-17] MED LIST changes: -AMLO5TAB2 PO; -ASPI-482 PO; -ATOR10TA60 PO; -DICL75TA PO; -FLECTOR1 EACH TP; +IOHEXOL 180 MG/ML 10 ML VIAL.; -IOHEXOL 180 MG/ML 10 ML VIAL. ONE; -LEVE500T6 PO; -LOSA1TAB22 PO; -METF500T4 PO; -METH-37 PO; -OXYC-323 PO; -PREG100C PO; -PREG150C PO; -[UNRECOGNIZED DRUG - OTHER]; +methylPREDNISolone ACETATE 40 MG/ML VIAL.; -methylPREDNISolone ACETATE 40 MG/ML VIAL. ONE; +methylPREDNISolone ACETATE 80 MG/ML VIAL.; -methylPREDNISolone ACETATE 80 MG/ML VIAL. ONE
== END | disposition home or self-care (01) ==
LOC: PNCL 13:17
DX: M51.16 Intervertebral disc disorders with radiculopathy, lumbar region (principal); M47.26 Other spondylosis with radiculopathy, lumbar region; I10 Essential (primary) hypertension; K21.9 Gastro-esophageal reflux disease without esophagitis; M19.90 Unspecified osteoarthritis, unspecified site; E11.9 Type 2 diabetes mellitus without complications; Z87.39 Personal history of other diseases of the musculoskeletal system and connective tissue; Z86.69 Personal history of other diseases of the nervous system and sense organs; Z86.39 Personal history of other endocrine, nutritional and metabolic disease; Z88.6 Allergy status to analgesic agent; Z88.0 Allergy status to penicillin; Z88.8 Allergy status to other drugs, medicaments and biological substances
CPT/HCPCS: 62323; J1030; J1040; Q9965

== ENCOUNTER → 2018-03-17 | Outpatient (CLI) | payer OTHER | END | disposition home or self-care (01) | LOC: PNCL 12:58 | DX: M51.16 Intervertebral disc disorders with radiculopathy, lumbar region (principal); M47.26 Other spondylosis with radiculopathy, lumbar region; M79.1 Myalgia; I10 Essential (primary) hypertension; E66.9 Obesity, unspecified; K21.9 Gastro-esophageal reflux disease without esophagitis; Z98.51 Tubal ligation status; E11.9 Type 2 diabetes mellitus without complications; M19.90 Unspecified osteoarthritis, unspecified site; Z88.0 Allergy status to penicillin; Z88.5 Allergy status to narcotic agent; Z88.8 Allergy status to other drugs, medicaments and biological substances; Z88.6 Allergy status to analgesic agent; Z79.82 Long term (current) use of aspirin; Z79.84 Long term (current) use of oral hypoglycemic drugs; Z79.899 Other long term (current) drug therapy | CPT/HCPCS: 20552; 62323; J1030; J1040; Q9965 ==

== ENCOUNTER → 2018-06-02 | Outpatient (CLI) | payer OTHER ==
[~2018-06-02] MED LIST changes: +LIDOCAINE 2% PF 2ML VIAL.
== END | disposition home or self-care (01) ==
LOC: PNCL 08:04
DX: M51.16 Intervertebral disc disorders with radiculopathy, lumbar region (principal); M47.26 Other spondylosis with radiculopathy, lumbar region; Z88.0 Allergy status to penicillin; Z88.5 Allergy status to narcotic agent; Z88.8 Allergy status to other drugs, medicaments and biological substances; I10 Essential (primary) hypertension; E66.9 Obesity, unspecified; K21.9 Gastro-esophageal reflux disease without esophagitis; Z98.51 Tubal ligation status; M19.90 Unspecified osteoarthritis, unspecified site; E11.9 Type 2 diabetes mellitus without complications; Z79.82 Long term (current) use of aspirin; Z79.899 Other long term (current) drug therapy; Z79.84 Long term (current) use of oral hypoglycemic drugs
CPT/HCPCS: 62323; J1030; J1040; J2001; Q9965

== ENCOUNTER → 2018-09-21 | Outpatient (CLI) | payer OTHER ==
[2017-02-27 14:48] VITALS: BP 123/77
[~2018-09-21] MED LIST changes: +AMLO5TAB7 PO; +ASPI-482 PO; +ATOR10TA60 PO; +DICL75TA PO; +FLECTOR1 EACH TP; -IOHEXOL 180 MG/ML 10 ML VIAL.; +IOHEXOL 180 MG/ML 10 ML VIAL. ONE; +LEVE500T6 PO; -LIDOCAINE 2% PF 2ML VIAL.; +LOSA1TAB22 PO; +METF500T16 PO; +METH-37 PO; +OXYC-323 PO; +PREG100C PO; +PREG150C PO; +[UNRECOGNIZED DRUG - OTHER]; -methylPREDNISolone ACETATE 40 MG/ML VIAL.; +methylPREDNISolone ACETATE 40 MG/ML VIAL. ONE; -methylPREDNISolone ACETATE 80 MG/ML VIAL.; +methylPREDNISolone ACETATE 80 MG/ML VIAL. ONE
--- NOTE | 2018-09-21 09:05 | PAIN ---
DATE OF SERVICE: 09/21/2018 PROGRESS NOTE FOR PAIN CLINIC DIAGNOSES: Lumbar radiculopathy with lumbar degenerative disk disease and lumbar spondylosis. HISTORY OF PRESENT ILLNESS: The patient is a 63-year-old female who returns for followup status post lumbar epidural steroid injection x 1 on 06/02/2018. The patient did very well with about 95% improvement for about 3 months. The patient reports the pain is returning now since the weather has gotten colder now in the low back, right and left lower extremity, more on the left side, anterior lateral thigh, anterior medial thigh, medial lower leg and into the calf, more on the left side. The patient reports it is worse with sitting for prolonged periods or getting up from sitting position and also with walking, standing. Initially, she was doing increased activity at work, walking greater distances, doing household activities with greater ease and comfort, sleeping well at night and now it varies. It occasionally awakens her from sleep but only rarely if she lies on her left side, otherwise she states morning noticeable with walking, standing and sitting and getting up from sitting particularly. The patient reports the pain is sharp, shooting, stabbing, becoming more severe, left greater than right. Rates it 10 on a scale of 10 at its worst, 10 on average, 7 at its least and is a 10 today. The patient reports no new motor or sensory deficits and no new bowel or bladder incontinence or other complaints. PHYSICAL EXAMINATION: VITAL SIGNS: The patient's blood pressure is 135/73, pulse 76, respirations 16, temperature 97.6 degrees Fahrenheit, height 5 feet 8 inches and weight is 239 pounds. GENERAL: The patient is awake, alert, oriented, appropriate and very pleasant demeanor. HEENT: Shows normocephalic and atraumatic. Extraocular movements are intact and symmetrical. Oral cavity: Mucous membranes moist and pink. Dentition is intact. NECK: Shows anterior throat supple without palpable lymphadenopathy noted. Swallow reflex symmetrical. CHEST: Shows normal on inspection. Breath sounds clear to auscultation bilaterally. HEART: Shows S1 and S2 clear. No murmurs auscultated. ABDOMEN: Soft, nontender and nondistended. No palpable organomegaly is noted. No rebound or guarding demonstrated. BACK: Shows spine grossly in the midline. Slight exaggeration of the thoracic kyphosis and some minor flattening of the lumbar lordotic curvature. Lumbar paraspinous musculature shows symmetrical on inspection and on palpation shows some moderate tenderness diffusely bilaterally without radiation. No difficulty with rotational motion both laterally as well as extension and flexion without significant pain reported. EXTREMITIES: Lower extremities show deep tendon reflexes 1+ in the patellar and tendo-calcaneus tendons. Motor exam is approximately 4 on a scale of 5, but equal and symmetrical with dorsiflexion, extension, quadriceps and hamstring flexion. Peripheral pulses are 1+ posterior tibial. No peripheral edema is noted bilaterally. Options were discussed with the patient. The patient's old chart was reviewed as well as her current medication regimen updated. Current review of systems updated today as well. We will proceed with a second in the series of lumbar epidural steroid injection today with fluoroscopic guidance. Risks were again discussed including, but not limited to bleeding, infection, possibility of epidural hematoma, subsequent neurological compromise, dural puncture, headaches, spinal cord and/or nerve damage, side effects of steroid medication and poor results regarding pain control. The patient understands and wished to proceed. The patient will return to the clinic in approximately 2 weeks for followup, was counseled as to return appointment, activity level and side effects to be aware of. DIAGNOSES: Lumbar radiculopathy with lumbar degenerative disk disease and lumbar spondylosis. PROCEDURE: Lumbar epidural steroid injection, translaminar approach, L4-L5 level using C-arm fluoroscopic guidance under sterile prep and drape using local anesthetic. MEDICATION INJECTED: A total of 120 mg Depo-Medrol plus 10 mL of preservative-free normal saline and 2 mL of Isovue for contrast. CONDITION AT DISCHARGE: Stable. The patient tolerated the procedure well and had no complications. MARRY ROSE MD DR: SHARON/jessenia JOB#: [id number] / [id number]
== END | disposition home or self-care (01) ==
LOC: PNCL 07:31
PROVIDERS: ATTEND Anesthesiology
DX: M51.16 Intervertebral disc disorders with radiculopathy, lumbar region (principal); M47.26 Other spondylosis with radiculopathy, lumbar region; Z88.0 Allergy status to penicillin; Z88.1 Allergy status to other antibiotic agents; Z88.5 Allergy status to narcotic agent; Z88.6 Allergy status to analgesic agent
CPT/HCPCS: 62323; J1030; J1040; Q9965

== ENCOUNTER → 2018-11-02 | Outpatient (CLI) | payer OTHER ==
[2017-02-27 14:48] VITALS: BP 123/77
[~2018-11-02] MED LIST changes: -OXYC-323 PO; +OXYC1TAB15 PO
--- NOTE | 2018-11-02 18:14 | PAIN ---
DATE OF SERVICE: 11/02/2018 PROGRESS NOTE FOR PAIN CLINIC DIAGNOSIS: Lumbar radiculopathy with lumbar degenerative disk disease and lumbar spondylosis. HISTORY OF PRESENT ILLNESS: The patient is a 63-year-old female who returns for followup status post lumbar epidural steroid injection x 2, most recently seen on 09/21/2018. The patient did very well with reportedly 100% improvement throughout the first month. The patient reports pain has been returning now over the past week or so across the low back into the lower extremities, mostly in the left but also in the right posterior gluteus, posterior thigh, lateral thigh, anterior thigh, medial thigh, medial lower leg and into the toes, especially the great toe on the left side. The patient reports it is worse with standing, walking, changing positions at work, standing on her feet at work and using a countertop which she has had to lean on. Also, her chair work has been having some difficulties and it was broken as well. The patient reports her pain is a 10 on a scale of 10 at its worst and on average, 8 at its least and is a 10 today. The patient reports it is sharp, shooting, stabbing, radiating, becoming more constant, more severe and more unbearable. Initially, she was increasing her activity at work as well as at home, sleeping better, walking greater distances, doing household activities as well with greater ease and comfort, now is waking her up from sleep about every 4-8 hours only over the past 1 week or so, before that she was doing quite well. PHYSICAL EXAMINATION: VITAL SIGNS: The patient's blood pressure is 165/92, pulse 74, respirations 18, temperature is 98.0 degrees Fahrenheit, height is 5 feet 8 inches, weight is 237 pounds. GENERAL: The patient is awake, alert, oriented, appropriate, very pleasant demeanor. HEENT: Head shows normocephalic, atraumatic. Extraocular movements are intact and symmetrical. Oral cavity: Mucous membranes are moist and pink. Dentition is intact. NECK: Shows anterior throat supple without palpable lymphadenopathy noted. Swallow reflex is symmetrical. CHEST: Shows normal on inspection. Breath sounds are clear to auscultation bilaterally. HEART: Shows S1, S2 clear. No murmurs auscultated. ABDOMEN: Soft, nontender, nondistended. No palpable organomegaly is noted. No rebound or guarding demonstrated. BACK: Shows spine grossly in the midline. Slight exaggeration of thoracic kyphosis and some minor flattening of lumbar lordotic curvature. Lumbar paraspinous muscle shows symmetrical on inspection, on palpation shows some moderate tenderness, but only diffusely in the low lumbar distribution bilaterally. The patient shows good rotational motion both laterally as well as extension and flexion without significant pain reported. EXTREMITIES: Lower extremities show deep tendon reflexes at 1+ in the patellar and tendo calcaneus tendons. Motor exam is approximately 4 on a scale of 5 bilaterally, but equal and symmetrical with dorsiflexion, extension, quadriceps and hamstring flexion. Peripheral pulses are 1+ posterior tibial. No peripheral edema is noted bilaterally. Options were discussed with the patient. The patient's old chart was reviewed as her current medication regimen updated. Current review of systems updated today as well. We will proceed with a third in the series of lumbar epidural steroid injection today with fluoroscopic guidance. Risks were again discussed including, but not limited to bleeding, infection, possibility of epidural hematoma, subsequent neurological compromise, dural puncture, headaches, spinal cord and/or nerve damage, side effects of steroid medication and poor results regarding pain control. The patient understands and wished to proceed. The patient will return to the clinic in approximately 2 weeks for followup, was counseled as to return appointment, activity level and side effects to be aware of. DIAGNOSIS: Lumbar radiculopathy with lumbar degenerative disk disease and lumbar spondylosis. PROCEDURE: Lumbar epidural steroid injection, translaminar approach at L4-L5 level using C-arm fluoroscopic guidance under sterile prep and drape using local anesthetic. MEDICATION INJECTED: A total of 120 mg Depo-Medrol plus 10 mL of preservative-free normal saline and 2 mL of Isovue for contrast. CONDITION AT DISCHARGE: Stable. The patient tolerated the procedure well, had no complications. MARRY ROSE MD DR: SHARON/jessenia JOB#: [id number] / [id number]
== END | disposition home or self-care (01) ==
LOC: PNCL 08:56
PROVIDERS: ATTEND Anesthesiology
DX: M51.16 Intervertebral disc disorders with radiculopathy, lumbar region (principal); M47.26 Other spondylosis with radiculopathy, lumbar region; Z88.0 Allergy status to penicillin; Z88.5 Allergy status to narcotic agent; Z88.1 Allergy status to other antibiotic agents; Z88.8 Allergy status to other drugs, medicaments and biological substances
CPT/HCPCS: 62323; J1030; J1040; Q9965

== ENCOUNTER → 2018-12-11 | Outpatient (CLI) | payer OTHER ==
[2017-02-27 14:48] VITALS: BP 123/77
[~2018-12-11] MED LIST changes: +AMLO5TAB10 PO; -AMLO5TAB7 PO; +BUPIVACAINE MPF 0.25% 10 ML VIAL. ONE
--- NOTE | 2018-12-11 20:22 | PAIN ---
DATE OF SERVICE: 12/11/2018 DIAGNOSES: 1. Lumbar radiculopathy with lumbar degenerative disk disease. 2. Lumbar and lumbosacral spondylosis. HISTORY OF PRESENT ILLNESS: The patient is a 63-year-old female who returns for followup status post lumbar epidural steroid injection x 3, most recently 11/02/2018. The patient did very well with about 95% improvement, still some pain in the right low back; however, the patient reports her left side is doing much better, left lower extremity is better, the right lower extremity is better, but the pain is in the back, worse with extension and with rotation, sitting for prolonged periods, riding or driving. The patient reports it is aching and tight, becoming more severe, more unbearable in the right back itself, but without radiation. The patient reports it is a 10 on a scale of 10 at its worst, 8 on average, 8 at its least, and is an 8 today. The patient reports it is awaking her from sleep about every 4 hours, has become more since the last visit, though her leg is doing much better. The patient reports no new motor or sensory deficits, no new bowel or bladder incontinence or other complaints. PHYSICAL EXAMINATION: VITAL SIGNS: The patient's blood pressure 140/67, pulse 69, respirations 18, temperature 98.0 degrees Fahrenheit, height is 5 feet 8 inches, weight is 238 pounds. GENERAL: The patient is awake, alert, oriented, appropriate, very pleasant demeanor. HEENT: Shows normocephalic, atraumatic. Extraocular movements are intact and symmetrical. Oral cavity: Mucous membranes moist and pink. Dentition is intact. NECK: Shows anterior throat supple without palpable lymphadenopathy noted. Swallow reflex symmetrical. CHEST: Shows normal on inspection. Breath sounds are clear to auscultation bilaterally. HEART: Shows S1, S2 clear. No murmurs auscultated. ABDOMEN: Soft, nontender, nondistended. No palpable organomegaly is noted. No rebound or guarding demonstrated. BACK: Shows spine grossly in the midline. Normal appearing thoracic kyphosis and lumbar lordotic curvature. Lumbar paraspinous muscle shows symmetrical on inspection. On palpation shows some moderate tenderness, but only diffusely. The patient does show increased pain with extension and axial loading of the lumbar spine; however, better with forward flexion at 45 degrees. Right and left lateral rotation shows some moderate tenderness with right lateral rotation past 10 degrees, but not left rotation. EXTREMITIES: Lower extremities show deep tendon reflexes 1+ in the patellar and tendo calcaneus tendons. Motor exam is approximately 4 on a scale of 5, but equal and symmetrical. Peripheral pulses are 1+ posterior tibia. No peripheral edema is noted. Options were discussed with the patient. The patient's old chart was reviewed as was her current medication regimen updated. Current review of systems is updated today as well and we will proceed with a right-sided L4-L5 and L5-S1 facet joint injections today with fluoroscopic guidance. Risks were again discussed including, but not limited to bleeding, infection, possibility of epidural hematoma, subsequent neurologic compromise, dural puncture, headaches, spinal cord and/or nerve damage, side effects of steroid medication and poor results regarding pain control. The patient understands and wished to proceed. The patient will return to the clinic in approximately 2 weeks for followup, was counseled on return appointment, activity level and side effects to be aware of. DIAGNOSIS: Lumbar and lumbosacral spondylosis. PROCEDURES: Right-sided L4-L5 and L5-S1 facet joint injections using C-arm fluoroscopic guidance under sterile prep and drape using local anesthetic. MEDICATION INJECTED: A total of 120 mg Depo-Medrol plus 2 mL of 0.25% bupivacaine after negative aspiration and 1 mL total of Isovue for contrast. CONDITION AT DISCHARGE: Stable. The patient tolerated the procedure well, had no complications. MARRY ROSE MD DR: SHARON/jessenia JOB#: [id number] / [id number]
== END | disposition home or self-care (01) ==
LOC: PNCL 08:22
PROVIDERS: ATTEND Anesthesiology
DX: M47.817 Spondylosis without myelopathy or radiculopathy, lumbosacral region (principal); M54.5 Low back pain; G89.29 Other chronic pain; Z98.890 Other specified postprocedural states
CPT/HCPCS: 64493; 64494; J1030; J1040; J3490; Q9965

== ENCOUNTER → 2019-02-05 | Outpatient (CLI) | payer OTHER ==
[2017-02-27 14:48] VITALS: BP 123/77
[~2019-02-05] MED LIST changes: -BUPIVACAINE MPF 0.25% 10 ML VIAL. ONE; +DULA0.75 SQ
--- NOTE | 2019-02-05 23:12 | PAIN ---
DATE OF SERVICE: 02/05/2019 DIAGNOSES: Lumbar radiculopathy with lumbar degenerative disk disease and lumbar spondylosis. HISTORY OF PRESENT ILLNESS: The patient is a 63-year-old female who returns for followup status post right-sided facet joint injections, L4-L5 and L5-S1 with very good improvement about 75-80% initially. 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 This has caused her back pain. This significantly increased as she was not cleared to do stooping, bending exercises for any period of time more than a few seconds if necessary. The patient reports she was forced to do this to qualify for the CPR training, this caused her back pain to significantly increase. She has been having difficulty sleeping. She has been having trouble walking, standing, changing positions as well as sitting, standing, resting. All activities essentially have been reset to what it was prior to her last injections. The patient reports her pain is an 8 on a scale of 10 at its worst now, 7 at its least and 8 on average and is an 8 today. The patient reports aching, cramping, stabbing, becoming more constant, more unbearable in the low back radiating to bilateral lower extremities, worse on the right than the left, but present bilaterally. The patient reports it is radiating into the posterior gluteus, posterior lateral thigh, lateral anterior thigh, anterior medial lower legs and knees as well. The patient reports no loss of motor function with significant disability with walking, standing. It has been waking her from sleep occasionally, better usually with sitting or lying down. The patient reports her high back chair at work does decrease the pain when she is sitting, but walking and standing has been much worse since the CPR training. The patient reports no new motor or sensory deficits, no bowel or bladder incontinence. PHYSICAL EXAMINATION: VITAL SIGNS: The patient's blood pressure 142/82, pulse is 75, respirations 18, temperature 97.6 degrees Fahrenheit. Height is 5 feet 8 inches, weighs 240 pounds. GENERAL: The patient is awake, alert, oriented, appropriate, very pleasant demeanor. HEENT: Shows normocephalic, atraumatic. Extraocular movements are intact and symmetrical. Oral cavity: Mucous membranes moist and pink. Dentition is intact. NECK: Shows anterior throat supple without palpable lymphadenopathy noted. Swallow reflex is symmetrical. CHEST: Shows normal with inspection. Breath sounds clear to auscultation bilaterally. HEART: Shows S1, S2 clear. No murmurs auscultated. ABDOMEN: Soft, nontender, nondistended. No palpable organomegaly is noted. No rebound or guarding demonstrated. BACK: Shows spine grossly in the midline. Normal appearing thoracic kyphosis, mild flattening of lumbar lordotic curvature. Lumbar paraspinous muscle shows symmetrical on inspection, on palpation shows some moderate tenderness diffusely without significant radiation. The patient has good rotational motion of lumbar spine, both laterally as well as extension and flexion without significant pain reported. EXTREMITIES: The patient's lower extremities show deep tendon reflexes 1+ in the patellar and tendo calcaneus tendons. Motor exam is strong with 4/5 dorsiflexion, extension, but equal and symmetrical. Peripheral pulses are 1+ posterior tibia. No peripheral edema is noted bilaterally. Options were discussed with the patient. The patient's old chart was reviewed as her current medication regimen updated. Current review of systems updated today as well. We will proceed with a lumbar epidural steroid injection today, the first in this series with fluoroscopic guidance. Risks were again discussed including, but not limited to bleeding, infection, possibility of epidural hematoma and subsequent neurological compromise, dural puncture, headaches, spinal cord and/or nerve damage, side effects of steroid medication and poor results regarding pain control. The patient understands and wished to proceed. The patient will return to the clinic in approximately 2 weeks for followup. She was counseled as to return appointment, activity level, and side effects to be aware of. DIAGNOSES: Lumbar radiculopathy with lumbar degenerative disk disease, lumbar spondylosis. PROCEDURE: Lumbar epidural steroid injection, translaminar approach at L4-L5 level using C-arm fluoroscopic guidance under sterile prep and drape using local anesthetic. MEDICATION INJECTED: A total of 120 mg Depo-Medrol plus 10 mL of preservative-free normal saline and 2 mL of Isovue for contrast. CONDITION AT DISCHARGE: Stable. The patient tolerated procedure well, had no complications. MARRY ROSE MD DR: SHARON/jessenia JOB#: [id number] / [id number]
== END | disposition home or self-care (01) ==
LOC: PNCL 07:43
PROVIDERS: ATTEND Anesthesiology
DX: M51.16 Intervertebral disc disorders with radiculopathy, lumbar region (principal); M47.26 Other spondylosis with radiculopathy, lumbar region; Z88.0 Allergy status to penicillin; Z88.1 Allergy status to other antibiotic agents; Z88.5 Allergy status to narcotic agent; Z88.6 Allergy status to analgesic agent; Z88.8 Allergy status to other drugs, medicaments and biological substances
CPT/HCPCS: 62323; J1030; J1040; Q9965

== ENCOUNTER → 2019-02-19 | Outpatient (CLI) | payer OTHER ==
[2017-02-27 14:48] VITALS: BP 123/77
--- NOTE | 2019-02-20 01:29 | PAIN ---
DATE OF SERVICE: 02/19/2019 DIAGNOSES: Lumbar radiculopathy with lumbar degenerative disk disease and lumbar spondylosis. HISTORY OF PRESENT ILLNESS: The patient is a 63-year-old female who returns for followup status post lumbar epidural steroid injection x 1 on 02/05/2019. The patient reports she did quite well with 80% improvement initially, now is reporting about 30% improvement overall in the low back with some pain in the right low back greater than the left, but does not significantly radiate to the lower extremities. The patient reports increasing her activity with greater ease and comfort. She also reports pain in the right side of the back with walking, standing, changing positions, better with sitting or lying down. She is sleeping better, increasing activity at work as well as at home, traveling with greater ease and comfort. She is quite pleased with her progress thus far. The patient still reports pain in the low back, bilateral lower extremities, posterior gluteus, posterior lateral thigh, lateral anterior thighs, medial thighs, again worse on the right than the left, but much improved. The patient reports it is aching, burning, radiating, sometimes constant, severe at times when she is on her feet for more than an hour or so. The patient rates her pain as a 9 on a scale of 10 at its worst, 7 on average, 7-8 at its least and is a 7 today. The patient reports no new motor or sensory deficits, no new bowel or bladder incontinence or other complaints. PHYSICAL EXAMINATION: VITAL SIGNS: The patient's blood pressure 124/75, pulse 69, respirations 18, temperature 98.0 degrees Fahrenheit, height is 5 feet 8 inches, weight is 242 pounds. GENERAL: The patient is awake, alert, oriented, appropriate, very pleasant demeanor. HEENT: Shows normocephalic, atraumatic. Extraocular movements are intact and symmetrical. Oral cavity: Mucous membranes are moist and pink. Dentition is intact. NECK: Shows anterior throat supple without palpable lymphadenopathy noted. Swallow reflex is symmetrical. CHEST: Shows normal on inspection. Breath sounds clear to auscultation bilaterally. HEART: Shows S1, S2 clear. No murmurs auscultated. ABDOMEN: Soft, nontender, nondistended. No palpable organomegaly is noted. No rebound or guarding demonstrated. BACK: Shows spine grossly in the midline. Normal appearing thoracic kyphosis, some minor flattening of lumbar lordotic curvature. Lumbar paraspinous muscle shows symmetrical on inspection and palpation shows some moderate tenderness bilaterally in the middle and lower distribution of paraspinous muscles, slightly more tender on the right than the left, but symmetrical without evidence of atrophy, hypertrophy, no trigger points, no radiation of pain, no tenderness over the sacrum or sacroiliac regions. The patient has good rotational motion of lumbar spine, some minor tenderness with extension, but not with forward flexion, also with some right lateral rotation, but very minimal pain. EXTREMITIES: Lower extremities show deep tendon reflexes 1+ in the patellar and tendo calcaneus tendons. Motor exam is approximately 4 on a scale of 5, equal and symmetrical bilaterally. Peripheral pulses are 1+ posterior tibia. No peripheral edema is noted. Options were discussed with the patient. The patient's old chart was reviewed as her current medication regimen updated. Current review of systems updated today as well. We will proceed with a second in the series of lumbar epidural steroid injections today with fluoroscopic guidance. Risks were again discussed including, but not limited to bleeding, infection, possibility of epidural hematoma, subsequent neurological compromise, dural puncture, headaches, spinal cord and/or nerve damage, side effects of steroid medication and poor results regarding pain control. The patient understands and wished to proceed. The patient to return to clinic in approximately 2 weeks for followup, was counseled as to return appointment, activity level and side effects to be aware of. DIAGNOSES: Lumbar radiculopathy with lumbar degenerative disk disease, lumbar spondylosis. PROCEDURES: Lumbar epidural steroid injection, translaminar approach at L4-L5 level using C-arm fluoroscopic guidance under sterile prep and drape using local anesthetic. MEDICATION INJECTED: A total of 120 mg Depo-Medrol, plus 10 mL of preservative free normal saline, 2 mL of Isovue for contrast. CONDITION AT DISCHARGE: Stable. The patient tolerated procedure well, had no complications. MARRY ROSE MD DR: SHARON/jessenia JOB#: [id number] / [id number]
== END | disposition home or self-care (01) ==
LOC: PNCL 08:50
PROVIDERS: ATTEND Anesthesiology
DX: M51.16 Intervertebral disc disorders with radiculopathy, lumbar region (principal); M47.26 Other spondylosis with radiculopathy, lumbar region; Z88.0 Allergy status to penicillin; Z88.1 Allergy status to other antibiotic agents; Z88.5 Allergy status to narcotic agent; Z88.6 Allergy status to analgesic agent; Z88.8 Allergy status to other drugs, medicaments and biological substances
CPT/HCPCS: 62323; J1030; J1040; Q9965

== ENCOUNTER → 2019-07-14 | Outpatient (CLI) | payer OTHER ==
[2017-02-27 14:48] VITALS: BP 123/77
--- NOTE | 2019-07-15 01:04 | PAIN ---
DATE OF SERVICE: 07/14/2019 PROGRESS NOTE FOR PAIN CLINIC DIAGNOSES: 1. Lumbar radiculopathy with lumbar degenerative disk disease. 2. Lumbar spondylosis with lumbar and lumbosacral spondylosis. HISTORY OF PRESENT ILLNESS: The patient is a 63-year-old female who returns for followup status post lumbar epidural steroid injection x 2, most recently on 02/19/2019. The patient did very well, reports about 100% improvement after the last injection for several months. The pain is returning now over the past 4-5 weeks. The patient reports it is in the low back, bilateral lower extremities, radiating to posterior gluteus, posterior thigh, lateral thigh, lateral anterior thighs, more on the right than the left, but present bilaterally. The patient reports it is aching type, cramping, sometimes severe and unbearable, worse with walking, standing, changing positions, better with sitting or lying down, does not awaken her from sleep. The patient reports that 10 on a scale of 10 at its worst, 10 on average and 9 at its least and is a 9 today. The patient reports no new motor or sensory deficits or other complaints. PHYSICAL EXAMINATION: VITAL SIGNS: The patient's blood pressure 131/69, pulse 81, respirations are 18, temperature 98.5 degrees Fahrenheit, height is 5 feet 8 inches and weighs 244 pounds. GENERAL: The patient is awake, alert, oriented, appropriate, very pleasant demeanor. HEENT: Shows normocephalic, atraumatic. Extraocular movements are intact and symmetrical. Oral cavity: Mucous membranes moist and pink. Dentition is intact. NECK: Shows anterior throat supple without palpable lymphadenopathy noted. Swallow reflex symmetrical. CHEST: Shows normal on inspection. Breath sounds are coarse, but clear bilaterally. HEART: Shows S1, S2 clear. ABDOMEN: Obese, soft, nontender, nondistended. BACK: Shows spine grossly in the midline. Slight exaggeration of thoracic kyphosis, lumbar lordotic curvatures and slightly flattened as well. Lumbar paraspinous muscle shows symmetrical on inspection and palpation shows some moderate tenderness diffusely bilaterally, but only diffusely throughout the upper, middle and lower distribution of paraspinous muscles. The patient shows good rotational motion of lumbar spine, both laterally as well as extension and flexion without difficulty. EXTREMITIES: Lower extremities show deep tendon reflexes at 1+ in the patellar and tendo calcaneus tendons. Motor exam is approximately 4 on a scale of 5, but symmetrical and equal bilaterally. Peripheral pulses are 1+ posterior tibia. No peripheral edema is noted. Options were discussed with the patient. The patient's old chart was reviewed as her current medication regimen updated. Current review of systems updated today as well. We will proceed with a third in a series of lumbar epidural steroid injection today with fluoroscopic guidance. Risks were again discussed including, but not limited to bleeding, infection, possibility of epidural hematoma, subsequent neurological compromise, dural puncture, headaches, spinal cord and/or nerve damage, side effects of steroid medication and poor results regarding pain control. The patient understands and wished to proceed. The patient will return to clinic in approximately 2 weeks for followup. She was counseled as to return appointment, activity level and side effects to be aware of. DIAGNOSIS: Lumbar radiculopathy with lumbar degenerative disk disease. PROCEDURE: Lumbar epidural steroid injection, translaminar approach L4-L5 level using C-arm fluoroscopic guidance under sterile prep and drape using local anesthetic. MEDICATIONS INJECTED: The patient received a total of 120 mg Depo-Medrol plus 10 mL of preservative-free normal saline and 2 mL of contrast. CONDITION AT DISCHARGE: Stable. The patient tolerated procedure well, had no complications. MARRY ROSE MD DR: SHARON/jessenia JOB#: [id number] / [id number]
== END ==
LOC: PNCL 08:07
PROVIDERS: ATTEND Anesthesiology
DX: M51.16 Intervertebral disc disorders with radiculopathy, lumbar region (principal); M47.817 Spondylosis without myelopathy or radiculopathy, lumbosacral region
CPT/HCPCS: 62323; J1030; J1040; Q9965

== ENCOUNTER → 2019-10-06 | Outpatient (CLI) | payer OTHER ==
[2017-02-27 14:48] VITALS: BP 123/77
--- NOTE | 2019-10-06 08:54 | PAIN ---
DATE OF SERVICE: 10/06/2019 PROGRESS NOTE FOR PAIN CLINIC DIAGNOSES: Lumbar radiculopathy with lumbar degenerative disk disease. HISTORY OF PRESENT ILLNESS: The patient is a 64-year-old female who returns for followup status post lumbar epidural steroid injections. Most recently on 07/14/2019, the patient did very well with near 100% improvement. Until about 2 weeks ago, the patient reports the pain began to return in the low back, bilateral lower extremities, posterior gluteus, lateral thigh, lateral anterior thighs and medial and lower legs, right equal to left. The patient reports sharp pain is dull, shooting, stabbing, unbearable at times, worse with walking, standing, changing positions, better with sitting or lying down, does not awaken her from sleep at night and initially, she was increased distance walking, doing work activities, household activities with much greater ease and comfort, traveling with greater ease and was very pleased with her progress. The pain beginning to return now, rates as a 10 on a scale of 10 at its worst on average, 9 on its average and 8 at its least over the past week and is 8 today. The patient reports no new motor or sensory deficits, no new bowel or bladder incontinence or other complaints. PHYSICAL EXAMINATION: VITAL SIGNS: The patient's blood pressure 138/70, pulse 85, respirations 18, temperature 98.0 degrees Fahrenheit, height is 5 feet 8 inches, weight is 242 pounds. GENERAL: The patient is awake, alert, oriented, appropriate, very pleasant demeanor. HEENT: Shows normocephalic, atraumatic. Extraocular movements are intact and symmetrical. Oral cavity: Mucous membranes moist and pink. Dentition is intact. NECK: Shows anterior throat supple without palpable lymphadenopathy noted. Swallow reflex symmetrical. CHEST: Shows normal on inspection. Breath sounds are clear bilaterally. HEART: Shows S1, S2 clear. No murmurs auscultated. ABDOMEN: Soft, nontender, nondistended. No palpable organomegaly is noted. No rebound or guarding demonstrated. BACK: Shows spine grossly in the midline. Slight exaggeration of thoracic kyphosis, some minor flattening of lumbar lordotic curvature. Lumbar paraspinous muscle shows symmetrical on inspection, with palpation shows some moderate tenderness diffusely, but only diffusely throughout the upper, middle and lower distribution of paraspinous muscles bilaterally without radiation, without atrophy, hypertrophy, without asymmetry. The patient has good rotational motion of lumbar spine, both laterally as well as extension and flexion. EXTREMITIES: Lower extremities show deep tendon reflexes 1+ in the patellar and tendo calcaneus tendons are equal. Motor exam is strong with approximately 4 on a scale of 5, but symmetrical dorsiflexion, extension, quadriceps and hamstring flexion. Peripheral pulses are 1+ posterior tibia. No peripheral edema is noted bilaterally. Options were discussed with the patient. The patient's old chart was reviewed as her current medication regimen updated. Current review of systems updated today as well and we will proceed with a first in this series of lumbar epidural steroid injection today with fluoroscopic guidance. Risks were again discussed including, but not limited to bleeding, infection, possibility of epidural hematoma, subsequent neurological compromise, dural puncture, headaches, spinal cord and/or nerve damage, side effects of steroid medication and poor results regarding pain control. The patient understands and wished to proceed. The patient will return to clinic in approximately 2 weeks for followup. She was counseled on return appointment, activity level and side effects to be aware of. DIAGNOSIS: Lumbar radiculopathy with lumbar degenerative disk disease and lumbar spondylosis. PROCEDURE: Lumbar epidural steroid injection, translaminar approach L4-L5 level using C-arm fluoroscopic guidance under sterile prep and drape using local anesthetic. MEDICATION INJECTED: A total of 120 mg Depo-Medrol plus 10 mL of preservative-free normal saline and 2 mL of contrast. CONDITION AT DISCHARGE: Stable. The patient tolerated procedure well, had no complications. MARRY ROSE MD DR: SHARON/nts JOB#: [id number] / [id number]
== END ==
LOC: PNCL 07:42
PROVIDERS: ATTEND Anesthesiology
DX: M51.16 Intervertebral disc disorders with radiculopathy, lumbar region (principal)
CPT/HCPCS: 62323; J1030; J1040; Q9965

== ENCOUNTER → 2019-12-17 | Outpatient (CLI) | payer OTHER ==
[2017-02-27 14:48] VITALS: BP 123/77
[~2019-12-17] MED LIST changes: +BUPIVACAINE MPF 0.25% 10 ML VIAL. ONE; +CELE200C PO; -methylPREDNISolone ACETATE 40 MG/ML VIAL. ONE
--- NOTE | 2019-12-17 12:03 | PAIN ---
DATE OF SERVICE: 12/17/2019 PROGRESS NOTE FOR PAIN CLINIC DIAGNOSES: Lumbar radiculopathy with lumbar degenerative disk disease and lumbar and lumbosacral spondylosis. HISTORY OF PRESENT ILLNESS: The patient is a 64-year-old female who returns for followup status post lumbar epidural steroid injection on 10/06/2019. The patient did very well with about 50% improvement overall. The patient reports she was doing much better initially and the pain in the legs is now improved and she is now left with pain in the right side of the low back, which she has had previously. We discussed this on her last visit as well. The patient reports the pain in the leg is now fairly significantly resolved, but the pain in the back is aching and sharp, tight, cramping and stabbing, becoming more unbearable with walking and weightbearing, sitting for prolonged period, especially when she is driving. The patient rates it as a 9 on a scale of 10 at its worst, 9 on average, 8 at its least and is a 9 today. The patient reports it is better with sitting or lying down, but only for short periods and awakens her from sleep at times, but not every night. The patient reports no new motor or sensory deficits, no new bowel or bladder incontinence. Again, pain is not radiating into the lower extremity at this time, just into the hip at some extent across the mid lumbar spine on the right side. The patient reports it is much worse with extension of the spine, rotation and twisting and bending. PHYSICAL EXAMINATION: VITAL SIGNS: Show blood pressure 145/71, pulse 67, respirations 18, temperature 98.4 degrees Fahrenheit, weight is 240 pounds. GENERAL: The patient is awake, alert, oriented, appropriate, very pleasant demeanor. HEENT: Shows normocephalic, atraumatic. Extraocular movements are intact and symmetrical. Oral cavity: Mucous membranes moist and pink. Dentition is intact. NECK: Shows anterior throat supple without palpable lymphadenopathy noted. Swallow reflex symmetrical. CHEST: Shows normal on inspection. Breath sounds clear to auscultation bilaterally. HEART: Shows S1, S2 clear. No murmurs auscultated. ABDOMEN: Obese but soft, nontender, nondistended. No palpable organomegaly is noted. No rebound or guarding demonstrated. BACK: Shows spine grossly in the midline. Normal appearing thoracic kyphosis and some minor flattening of lumbar lordotic curvature. Lumbar paraspinous muscle shows symmetrical on inspection, on palpation shows some moderate tenderness diffusely bilaterally going diffusely without significant radiation. The patient's back shows good rotational motion, with extension shows significant pain in the right side of low back but better with forward flexion and worse with right lateral rotation and not as significant with left lateral rotation at 10 degrees each direction. EXTREMITIES: The patient's lower extremities show deep tendon reflexes at 1+ patellar and tendo-calcaneus tendons. Motor exam is strong with 5/5 dorsiflexion, extension, quadriceps and hamstring flexion and symmetrical. Peripheral pulses are 1+ posterior tibia. No peripheral edema is noted bilaterally. Options were discussed with the patient. The patient's old chart was reviewed as her current medication regimen updated. Current review of systems updated today as well. We will proceed with a right-sided L4-L5 and L5-S1 facet joint injections today with fluoroscopic guidance. Risks were again discussed including, but not limited to bleeding, infection, possibility of epidural hematoma, subsequent neurological compromise, dural puncture, headaches, spinal cord and/or nerve damage, side effects of steroid medication and poor results regarding pain control. The patient understands and wished to proceed. The patient will return to clinic in approximately 2 weeks for followup. She was counseled on return appointment, activity level and side effects to be aware of. DIAGNOSIS: Lumbar and lumbosacral spondylosis. PROCEDURE: Right-sided L4-L5 and L5-S1 facet joint injections using C-arm fluoroscopic guidance under sterile prep and drape using local anesthetic. MEDICATION INJECTED: A total of 80 mg Depo-Medrol and total of 2 mL 0.25% bupivacaine, total of 1 mL total of contrast. CONDITION AT DISCHARGE: Stable. The patient tolerated the procedure well, had no complications. MARRY ROSE MD DR: SHARON/jessenia JOB#: [id number] / [id number]
== END ==
LOC: PNCL 09:03
PROVIDERS: ATTEND Anesthesiology
DX: M51.16 Intervertebral disc disorders with radiculopathy, lumbar region (principal); M47.817 Spondylosis without myelopathy or radiculopathy, lumbosacral region
CPT/HCPCS: 64493; 64494; J1040; J3490; Q9965

== ENCOUNTER → 2020-05-01 | Outpatient (CLI) | payer OTHER ==
[2017-02-27 14:48] VITALS: BP 123/77
[~2020-05-01] MED LIST changes: +methylPREDNISolone ACETATE 40 MG/ML VIAL. ONE
--- NOTE | 2020-05-01 21:15 | PAIN ---
DATE OF SERVICE: 05/01/2020 PROGRESS NOTE FOR PAIN CLINIC DIAGNOSES: 1. Lumbar and lumbosacral spondylosis. 2. Lumbar radiculopathy with lumbar degenerative disk disease. HISTORY OF PRESENT ILLNESS: The patient is a 64-year-old female who returns for followup status post recent facet joint injections on 12/17/2019. The patient did very well with approximately 90% improvement for the past 4 months. The patient reports the pain has been spreading out to both sides of her low back, right and left; however, the right was much worse in the past, equally as bad on the left side. The patient reports it is getting worse over the past 3-4 weeks without any specific injury or accident that she is aware of, but getting worse where it is a 10 on a scale of 10 at its worst over the past week, 10 on average, 8 at its least and is a 10 today. The patient reports it is aching and tight, becoming more severe and unbearable across the low back, but not radiating into the lower extremities. The patient reports she has not been lifting more than 12-15 pounds, has been very careful with her back at work as well as at home, still sleeping better, but it has been beginning to awaken her from sleep over the past 1-2 weeks. The patient reports she initially was doing much better with distance walking, doing work activities, household activities, cutting the grass at home, which was a significant improvement for her. The patient reports no new motor or sensory deficits, no new bowel or bladder incontinence, but still significant pain across the low back, again right greater than left, but present bilaterally. PHYSICAL EXAMINATION: VITAL SIGNS: The patient's blood pressure is 152/83, pulse 76, respirations 18, temperature 97.9 degrees Fahrenheit, weight is 241 pounds. GENERAL: The patient is awake, alert, oriented, appropriate, very pleasant demeanor. HEENT: Shows normocephalic, atraumatic. Extraocular movements are intact and symmetrical. Oral cavity: Mucous membranes moist and pink. Dentition is intact. NECK: Shows anterior throat supple without palpable lymphadenopathy noted. Swallow reflex symmetrical. CHEST: Shows normal on inspection. Breath sounds clear bilaterally. HEART: Shows S1, S2 clear. No murmurs auscultated. ABDOMEN: Obese, soft, nontender, nondistended. No palpable organomegaly is noted. No rebound or guarding demonstrated. BACK: Shows spine grossly in the midline. Normal appearing thoracic kyphosis and minor flattening of lumbar lordotic curvature. Lumbar paraspinous muscle shows symmetrical on inspection and on palpation shows some moderate tenderness diffusely bilaterally, but only diffusely without significant radiation. The patient has good rotational motion of the lumbar spine, but with some moderate tenderness with right and left lateral rotation, significant tenderness with extension and axial loading of the lumbar spine, better with forward flexion at 45 degrees with some decreased pain in the low back itself with forward flexion. EXTREMITIES: Lower extremities show deep tendon reflexes at 1+ in the patellar and tendo calcaneus tendons. Motor exam is approximately 4 on a scale of 5, but equal and symmetrical dorsiflexion, extension, quadriceps and hamstring flexion. Peripheral pulses are 1+ posterior tibia. No peripheral edema is noted bilaterally. Options were discussed with the patient. The patient's old chart was reviewed as her current medication regimen updated. Current review of systems updated today as well. We will proceed with bilateral L4-L5 and L5-S1 facet joint injections today with fluoroscopic guidance. Risks were again discussed including, but not limited to bleeding, infection, possibility of epidural hematoma, subsequent neurological compromise, dural puncture, headaches, spinal cord and/or nerve damage, side effects of steroid medication and poor results regarding pain control. The patient understands and wished to proceed. The patient will return to clinic in approximately 2 weeks for followup. She was counseled on return appointment, activity level and side effects to be aware of. DIAGNOSIS: Lumbar and lumbosacral spondylosis. PROCEDURE: Lumbar L4-L5 and L5-S1 facet joint injections using C-arm fluoroscopic guidance under sterile prep and drape using local anesthetic. MEDICATION INJECTED: A total of 120 mg of Depo-Medrol plus 4 mL of 0.25% bupivacaine, 2 mL of contrast. CONDITION AT DISCHARGE: Stable. The patient tolerated procedure well, had no complications. MARRY ROSE MD DR: SHARON/jessenia JOB#: [id number] / [id number]
== END ==
LOC: PNCL 13:36
PROVIDERS: ATTEND Anesthesiology
DX: M47.817 Spondylosis without myelopathy or radiculopathy, lumbosacral region (principal); M51.16 Intervertebral disc disorders with radiculopathy, lumbar region
CPT/HCPCS: 64493; 64494; 64495; J1030; J1040; J3490; Q9965; 64635; 64636

== ENCOUNTER → 2020-05-24 | Outpatient (CLI) | payer OTHER ==
[2017-02-27 14:48] VITALS: BP 123/77
[~2020-05-24] MED LIST changes: -BUPIVACAINE MPF 0.25% 10 ML VIAL. ONE; -IOHEXOL 180 MG/ML 10 ML VIAL. ONE; -methylPREDNISolone ACETATE 40 MG/ML VIAL. ONE; -methylPREDNISolone ACETATE 80 MG/ML VIAL. ONE
--- NOTE | 2020-05-24 15:35 | PAIN ---
DATE OF SERVICE: 05/24/2020 PROGRESS NOTE FOR PAIN CLINIC DIAGNOSES: Lumbar degenerative disk disease with lumbar and lumbosacral spondylosis. HISTORY OF PRESENT ILLNESS: This is a 64-year-old female who returns for followup status post bilateral L4-L5 and L5-S1 facet joint injections on 05/01/2020. The patient is doing very well with this and has done very well with this in the past as well, about 90% improvement for the first 2 weeks, then the pain began to return. The patient reports she has been working about the same as work, does not know of any increased activity or physical demands that she has had made the pain worse, but the pain is returning in the low back bilaterally, slightly worse on the left than the right, but present bilaterally. She can hardly bend on her left foot. She is having difficulty sleeping at night. Once again, initially for the first 2 weeks or so, she was doing much better with the use of walking, standing, changing positions, doing work activities, household activities, traveling with greater ease and comfort, sleeping better at night. Now is awaking about every 4 hours. The patient reports the pain is aching and tight and dull, alternating, radiating, constant, becoming severe and unbearable across the low back down into the lower extremities. The patient reports it is a 10 on a scale of 10 at all times, worst, least and its average, and is a 10 today. PHYSICAL EXAMINATION: VITAL SIGNS: The patient's blood pressure is 159/86, pulse 71, respirations 18, temperature 98.0 degrees Fahrenheit, height is 5 feet 8 inches and weight is 242 pounds. GENERAL: The patient is awake, alert, oriented, appropriate, very pleasant demeanor. HEENT: Head shows normocephalic, atraumatic. Extraocular movements are intact and symmetrical. Oral cavity, mucous membranes moist and pink. Dentition intact. NECK: Shows anterior throat supple without palpable lymphadenopathy noted. Swallow reflex symmetrical. CHEST: Shows normal on inspection. Breath sounds are clear bilaterally. HEART: Shows S1, S2 clear. No murmurs auscultated. ABDOMEN: Soft, nontender, nondistended, obese. BACK: Shows spine grossly in the midline. Slight exaggeration of thoracic kyphosis and minor flattening of lumbar lordotic curvature. Lumbar paraspinous muscle shows symmetrical on inspection, on palpation shows some moderate tenderness diffusely in the middle and lower distribution of paraspinous muscles bilaterally, but only diffusely without significant radiation. The patient does show moderate tenderness with right and left lateral rotation slightly more to the left than the right as well as extension with significant pain with axial loading and extension of the lumbar spine, better with forward flexion at 45 degrees, but not completely relieved. EXTREMITIES: The patient's lower extremities show deep tendon reflexes at 1+ in the patellar and tendo calcaneus tendons. Motor exam is approximately 4 on a scale of 5, but equal with dorsiflexion, extension, quadriceps and hamstring flexion bilaterally. Peripheral pulses are 1+. No peripheral edema is noted. PLAN: Options were discussed with the patient. The patient's old chart was reviewed as her current medication regimen updated. Current review of systems updated today as well. We will proceed with a preauthorization for repeat bilateral lumbar facet injections, medial branch injections at L4-L5 and L5-S1 levels bilaterally. If significantly improve, the patient would be eligible for possible radiofrequency ablation in the future as well, although she has done so well with the injections up to this point, we will discuss that in the future as an option as well. MARRY ROSE MD DR: SHARON/jessenia JOB#: [id number] / [id number]
== END | disposition home or self-care (01) ==
LOC: PNCL 14:11
PROVIDERS: ATTEND Anesthesiology
DX: M47.897 Other spondylosis, lumbosacral region (principal); M51.36 Other intervertebral disc degeneration, lumbar region; I10 Essential (primary) hypertension; Z88.0 Allergy status to penicillin; Z88.8 Allergy status to other drugs, medicaments and biological substances; Z79.82 Long term (current) use of aspirin; Z79.899 Other long term (current) drug therapy
CPT/HCPCS: G0463

== ENCOUNTER → 2020-06-01 | Outpatient (CLI) | payer OTHER ==
[2017-02-27 14:48] VITALS: BP 123/77
[~2020-06-01] MED LIST changes: +BUPIVACAINE MPF 0.25% 10 ML VIAL. ONE; +IOHEXOL 180 MG/ML 10 ML VIAL. ONE; +methylPREDNISolone ACETATE 40 MG/ML VIAL. ONE; +methylPREDNISolone ACETATE 80 MG/ML VIAL. ONE
--- NOTE | 2020-06-01 09:46 | PAIN ---
DATE OF SERVICE: 06/01/2020 PROGRESS NOTE FOR PAIN CLINIC DIAGNOSES: Lumbar radiculopathy with lumbar degenerative disk disease and lumbar and lumbosacral spondylosis. HISTORY OF PRESENT ILLNESS: The patient is a 64-year-old female who returns for followup status post evaluation and preauthorization for bilateral facet joint injections. The patient has obtained this and would like to proceed with this. The patient is with still significant pain in the low back itself radiating to the hips, but more on the right than the left and is much more painful with twisting, bending, especially extension of the lumbar spine. It awakens her for roughly 5-6 hours at night, difficult with walking, standing and even prolonged sitting for more than 20-30 minutes, the pain is becoming more noticeable. The patient reports no new motor or sensory deficits, rates her pain as a 10 on a scale of 10 at all times, worst, least and average and is a 10 today. The patient reports it is aching and sharp across the low back, some burning, cramping, stabbing pain as well. PHYSICAL EXAMINATION: VITAL SIGNS: The patient's blood pressure is 171/93, pulse 87, respirations are 16, temperature 98.5 degrees Fahrenheit, height is 5 feet 8 inches, weight is 240 pounds. GENERAL: The patient is awake, alert, oriented, appropriate, very pleasant demeanor. HEENT: Shows normocephalic, atraumatic. Extraocular movements are intact and symmetrical. Oral cavity shows mucous membranes moist and pink. Dentition is intact. NECK: Shows anterior throat supple without palpable lymphadenopathy noted. Swallow reflex symmetrical. CHEST: Shows normal on inspection. Breath sounds are clear bilaterally. HEART: Shows S1, S2 clear. No murmurs auscultated. ABDOMEN: Soft, nontender, nondistended. BACK: Shows spine grossly in the midline. Normal appearing thoracic kyphosis, some minor flattening of lumbar lordotic curvature. Lumbar paraspinous muscle shows symmetrical on inspection, with palpation shows some moderate tenderness diffusely throughout the upper, middle and lower distribution of paraspinous muscles, slightly more on the right than the left in the inferior aspect, but present bilaterally. The patient does show good rotational motion of lumbar spine with some moderate tenderness with right lateral rotation past 10 degrees as well as extension with significant tenderness bilaterally, again worse on the right than the left. This is decreased to a mild extent with forward flexion, which was performed to 45 degrees without significant pain or difficulty. EXTREMITIES: The patient's lower extremities show deep tendon reflexes 1+ in the patellar and tendo calcaneus tendons. Motor exam is 4 on a scale of 5, but equal and symmetrical dorsiflexion, extension, quadriceps and hamstring flexion. Peripheral pulses are 1+ posterior tibia. No peripheral edema is noted bilaterally. Options were discussed with the patient. The patient's old chart was reviewed as her current medication regimen updated. Current review of systems updated today as well and we will proceed with bilateral L4-L5 and L5-S1 facet injections today with fluoroscopic guidance. Risks were again discussed including, but not limited to bleeding, infection, possibility of epidural hematoma, subsequent neurological compromise, dural puncture, headaches, spinal cord and/or nerve damage, side effects of steroid medication and poor results regarding pain control. The patient understands and wished to proceed. The patient will return to clinic in approximately 2 weeks for followup. She was counseled on return appointment, activity level and side effects to be aware of. DIAGNOSES: Bilateral lumbar and lumbosacral spondylosis. PROCEDURE: Bilateral L4-L5 and L5-S1 facet joint injections using C-arm fluoroscopic guidance under sterile prep and drape using local anesthetic. MEDICATION INJECTED: A total of 120 mg Depo-Medrol plus 4 mL total of 0.25% bupivacaine, 2 mL total of contrast. CONDITION AT DISCHARGE: Stable. The patient tolerated procedure well, had no complications. MARRY ROSE MD DR: SHARON/jessenia JOB#: [id number] / [id number]
== END | disposition home or self-care (01) ==
LOC: PNCL 08:07
PROVIDERS: ATTEND Anesthesiology
DX: M51.16 Intervertebral disc disorders with radiculopathy, lumbar region (principal); M47.817 Spondylosis without myelopathy or radiculopathy, lumbosacral region; M51.17 Intervertebral disc disorders with radiculopathy, lumbosacral region; I10 Essential (primary) hypertension; Z79.899 Other long term (current) drug therapy
CPT/HCPCS: 64635; 64636; J1030; J1040; J3490; Q9965

== ENCOUNTER → 2020-12-28 | Outpatient (CLI) | payer MEDICARE, OTHER ==
[2017-02-27 14:48] VITALS: BP 123/77
[~2020-12-28] MED LIST changes: +AMLO-186 PO; -AMLO5TAB10 PO; -BUPIVACAINE MPF 0.25% 10 ML VIAL. ONE; -IOHEXOL 180 MG/ML 10 ML VIAL. ONE; -methylPREDNISolone ACETATE 40 MG/ML VIAL. ONE; -methylPREDNISolone ACETATE 80 MG/ML VIAL. ONE
--- NOTE | 2020-12-28 09:28 | PDOC ---
Progress Note - Pain Clinic Date of Service: DOS: DATE: 12/28/20 TIME: : Diagnosis: Dx: Lumbar radiculopathy with lumbar degenerative disease lumbar and lumbosacral spondylosis History or Present Illness: HPI: 65-year-old female returns for follow-up status post bilateral lumbar facet joint injections most recently since June 01, 2020. Patient reports about 80% improvement until about a few weeks ago the pain began to return most noticeably when she is walking and standing change positions patient with pain across the low back worse on the left side than the right but present bilaterally in the low back itself without significant radiation of the lower extremities patient reports her pain is a 9 on scale 10 is worst over the past week 8 on average 8 its least is an 8 today patient reports that sharp and dull shooting burning at times in the low back bilaterally. Patient reports worse with extension lumbar spine standing upward or sitting for prolonged periods has been beginning to awaken her from sleep about every 4 hours. Patient reports no new motor or sensory deficit no new bowel or bladder incontinence or other complaints. Physical Exam: VS: Pressure is 166/92 pulse 87 respirations 18 temperature 99.3 F height 5 foot 8 inches weight is 223 pounds PE: PHYSICAL EXAMINATION: GENERAL: The patient is awake, alert, oriented, appropriate, very pleasant demeanor HEENT: Shows normocephalic, atraumatic. Extraocular movements are intact and symmetrical. Oral cavity: Mucous membranes moist and pink. Dentition is intact. NECK: Shows anterior throat supple without palpable lymphadenopathy noted. Swallow reflex symmetrical. CHEST: Shows normal on inspection. Breath sounds are clear bilaterally, no rales or rhonchi bilaterally. HEART: Shows S1, S2 clear. No murmurs auscultated. ABDOMEN: Soft, nontender, nondistended, obese. No palpable organomegaly is noted. No rebound or guarding demonstrated. BACK: Shows spine grossly in the midline. Normal-appearing cervical lordotic curvature. There is slightly increased thoracic kyphosis, some minor flattening of the lumbar lordotic curvature. Lumbar paraspinous muscles show symmetrical on inspection, on palpation shows some moderate tenderness diffusely throughout the upper, middle and lower distribution of the paraspinous muscles without specific trigger points, without radiation of pain. The patient has good rotational motion of the lumbar spine, both laterally as well as extension flexion with some increased pain with extension and axial loading of the lumbar line bilaterally worse on the left than the right better with forward flexion at 45 degrees right and left lateral rotation is performed at 10 degrees with increased pain bilaterally worse on the left than the right, without radiation. EXTREMITIES: Lower extremities show deep tendon reflexes 1+ in the patellar and tendo calcaneus tendons. Motor exam is 4 on a scale of 5 with right dorsiflexion, extension, quadriceps and hamstring flexion and 4/5 on the left. Peripheral pulses are 1+ posterior tibial. No peripheral edema is noted bilaterally. Lower extremities are warm and dry to touch, equal in color and appearance. SKIN: Shows warm and dry, good turgor. No edema. No sores, rashes or bruising throughout. Procedure: Procedure: Options were discussed with patient. Patient chart reviews her current medicati on regimen updated current review of systems updated today as well. We will preauthorize patient for bilateral lumbar facet medial branch blocks at the L4-5 and L5-S1 levels as she is done very well with these in the past. Patient continue with stretching and strength exercises as currently also oral analgesics Motrin which decreases her pain slightly. Patient return to clinic o nce preauthorization is obtained we will plan on bilateral L4-5 and L5-S1 facet joint medial branch blocks at that time. Medication Injected: Med Injected: None Condition at Discharge: Condition at Discharge: Condition at discharge is stable. MARRY ROSE MD Dec 28, 2020 09:28
== END | disposition home or self-care (01) ==
LOC: PNCL 09:05
PROVIDERS: ATTEND Anesthesiology
DX: M51.16 Intervertebral disc disorders with radiculopathy, lumbar region (principal); M47.27 Other spondylosis with radiculopathy, lumbosacral region; I10 Essential (primary) hypertension; K21.9 Gastro-esophageal reflux disease without esophagitis; E66.9 Obesity, unspecified; M19.90 Unspecified osteoarthritis, unspecified site; E11.9 Type 2 diabetes mellitus without complications; Z98.51 Tubal ligation status; Z98.890 Other specified postprocedural states; Z79.899 Other long term (current) drug therapy; Z88.0 Allergy status to penicillin; Z88.1 Allergy status to other antibiotic agents; Z88.8 Allergy status to other drugs, medicaments and biological substances
CPT/HCPCS: 99212; G0463

== ENCOUNTER → 2021-01-12 | Outpatient (CLI) | payer MEDICARE ==
[2017-02-27 14:48] VITALS: BP 123/77
[~2021-01-12] MED LIST changes: +BUPIVACAINE MPF 0.25% 10 ML VIAL. ONE; +IOHEXOL 180 MG/ML 10 ML VIAL. ONE; +methylPREDNISolone ACETATE 40 MG/ML VIAL. ONE; +methylPREDNISolone ACETATE 80 MG/ML VIAL. ONE
--- NOTE | 2021-01-12 08:54 | PDOC ---
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 Patient ports did very well near 100% improvement for several months following the injection in May patient reports is returning now in the low back itself and in the bilateral lower extremities slightly into the hips but not radiating to the lower extremities any further patient reports the pain is an 8 on scale 10 is worse over the past week 7 on average 7 its least is a 7 today. Patient ports is aching and sharp shooting at times across the low back burning and cramping in the low back as well patient reports is worse with walking standing changing position especially getting up from seated position or sitting for too long more than about an hour patient reports it does awaken her from sleep about once every 6 hours or so and she was returned today after waiting for preauthorization from her insurance provider which has been obtained and she would like to proceed with bilateral facet injections as she does very well with these. Patient reports no new motor or sensory deficits no new bowel or bladder incontinence or other complaints. Physical Exam: VS: Blood pressure is 155/80 pulse 74 respirations 18 temp 90 Fahrenheit weight is 224 pounds PE: PHYSICAL EXAMINATION: GENERAL: The patient is awake, alert, oriented, appropriate, very pleasant demeanor HEENT: Shows normocephalic, atraumatic. Extraocular movements are intact and symmetrical. Oral cavity: Mucous membranes moist and pink. Dentition is intact. NECK: Shows anterior throat supple without palpable lymphadenopathy noted. Swallow reflex symmetrical. CHEST: Shows normal on inspection. Breath sounds are clear bilaterally, no rales or rhonchi. HEART: Shows S1, S2 clear. No murmurs auscultated. ABDOMEN: Soft, nontender, nondistended, obese. No palpable organomegaly is noted. BACK: Shows spine grossly in the midline. Normal-appearing cervical lordotic curvature. There is slightly increased thoracic kyphosis, some minor flattening of the lumbar lordotic curvature. Lumbar paraspinous muscles show symmetrical on inspection, on palpation shows some moderate tenderness diffusely throughout the upper, middle and lower distribution of the paraspinous muscles without specific trigger points, without radiation of pain. The patient has good rotational motion of the lumbar spine, both laterally as well as extension and flexion with moderate tenderness with extension and axial loading of the lumbar spine better with forward flexion 45 degrees without significant pain right and left lateral rotation at 10 degrees show some moderate tenderness bilaterally slightly worse on the left than the right. No tenderness over the spinous processes, sacrum or sacroiliac regions. EXTREMITIES: Lower extremities show deep tendon reflexes 1+ in the patellar and tendo calcaneus tendons. Motor exam is 4 on a scale of 5 with right dorsiflexion, extension, quadriceps and hamstring flexion and 4/5 on the left. Peripheral pulses are 1+ posterior tibial. No peripheral edema is noted bilat erally. Lower extremities are warm and dry to touch, equal in color and appearance. SKIN: Shows warm and dry, good turgor. No edema. No sores, rashes or bruising throughout. Procedure: Procedure: Options were discussed with the patient. Patient will chart reviews her current medication regimen updated current review of systems updated as well. We will proceed with bilateral L4-5 and L5-S1 facet joint injections today with fluoroscopic guidance. Risks were discussed including but not limited to: Bleeding, infection, possibility of epidural hematoma and subsequent neurological compromise, dural puncture, headaches, spinal cord and/or nerve damage, side effects of steroid medication, and poor results regarding pain control. Patient understands and wished to proceed. Patient return to clinic in approximately 2 weeks for follow-up, was counseled as to return appointment, activity level, and side effects to be aware of. Medication Injected: Med Injected: Under sterile prep and drape using C-arm fluoroscopic guidance AP and lateral and oblique views, bilateral L4-5 and L5-S1 facet joint injections were performed, medications injected: 120 mg Depo-Medrol +4 cc 0.25% bupivacaine +2 cc contrast. Condition at discharge stable patient tolerated the procedure well and no complications. Condition at Discharge: Condition at Discharge: Condition at discharge stable, patient already procedure well and had no complications. MARRY ROSE MD Jan 12, 2021 08:54
--- NOTE | 2021-01-12 08:55 | PDOC4 ---
PROCEDURE Procedure Patient was consented for bilateral L4-5 and L5-S1 facet joint injections. Risks were discussed including but not limited to: Bleeding, infection, possibility of epidural hematoma and subsequent neurological compromise, dural puncture, headaches, spinal cord and/or nerve damage, side effects of steroid medication, and poor results regarding pain control. Patient understands and wished to proceed. Under sterile prep and drape using C-arm fluoroscopic guidance AP and lateral and oblique views, bilateral L4-5 and L5-S1 facet joint injections were performed, medications injected: 120 mg Depo-Medrol +4 cc 0.25% bupivacaine +2 cc contrast. Condition at discharge stable patient tolerated the procedure well and no complications. MARRY ROSE MD Jan 12, 2021 08:55
== END | disposition home or self-care (01) ==
LOC: PNCL 08:11
PROVIDERS: ATTEND Anesthesiology
DX: M47.817 Spondylosis without myelopathy or radiculopathy, lumbosacral region (principal); M51.36 Other intervertebral disc degeneration, lumbar region; I10 Essential (primary) hypertension; E66.9 Obesity, unspecified; K21.9 Gastro-esophageal reflux disease without esophagitis; E11.9 Type 2 diabetes mellitus without complications; M19.90 Unspecified osteoarthritis, unspecified site; Z98.51 Tubal ligation status; Z98.890 Other specified postprocedural states; Z79.899 Other long term (current) drug therapy; Z79.82 Long term (current) use of aspirin; Z88.0 Allergy status to penicillin; Z88.1 Allergy status to other antibiotic agents; Z88.8 Allergy status to other drugs, medicaments and biological substances
CPT/HCPCS: 64493; 64494; J1030; J1040; J3490; Q9965; 77002

== ENCOUNTER → 2021-09-20 | Outpatient (CLI) | payer MEDICARE ==
[2017-02-27 14:48] VITALS: BP 123/77
[~2021-09-20] MED LIST changes: +AMLO-187 PO; -BUPIVACAINE MPF 0.25% 10 ML VIAL. ONE; -IOHEXOL 180 MG/ML 10 ML VIAL. ONE; -methylPREDNISolone ACETATE 40 MG/ML VIAL. ONE; -methylPREDNISolone ACETATE 80 MG/ML VIAL. ONE
--- NOTE | 2021-09-20 09:48 | PDOC ---
Progress Note - Pain Clinic Date of Service: DOS: DATE: 09/20/21 TIME: 09:45 Diagnosis: Dx: Lumbar and lumbosacral spondylosis Lumbar degenerative disc disease History or Present Illness: HPI: 66-year-old female presents with pain low back bilaterally last seen January 2021 patient had lumbar facet medial branch blocks did very well at 80% improvement for about 6 months patient reports pains beginning to return now over the past month or so, in the low back itself but not radiating to the lower extremities. Patient reports it is a 10 on scale 10 is worse to the past week 9 on average 9 its least is a 9 today patient reports aching and sharp cramping can be constant severe across the low back bilaterally right essentially equal to left with walking standing especially changing positions sitting for prolonged periods greater than 20 to 30 minutes as well as standing for more than 5 to 10 minutes patient reports is disturbing her sleep wakes her from sleep least once or twice a night initially much better distance walking doing household activities work activities try with greater ease and comfort and sleeping better. Patient reports now the pain is returning across the low back again worse with extension worse with walking standing changing positions. Patient reports no bowel or bladder incontinence. Physical Exam: VS: Blood pressure is 150/71 pulse 73 respirations 18 temperature 98.1 F weight is 234 pounds PE: PHYSICAL EXAMINATION: GENERAL: The patient is awake, alert, oriented, appropriate, very pleasant in demeanor HEENT: Shows normocephalic, atraumatic. Extraocular movements are intact and symmetrical. Oral cavity: Mucous membranes moist and pink. Dentition is intact. NECK: Shows anterior throat supple without palpable lymphadenopathy noted. Swallow reflex symmetrical. CHEST: Shows normal on inspection. Breath sounds are clear bilaterally, distant but no rales or rhonchi. HEART: Shows S1, S2 clear. No murmurs auscultated. ABDOMEN: Soft, nontender, nondistended, obese. No palpable organomegaly is noted. BACK: Shows spine grossly in the midline. Normal-appearing cervical lordotic curvature. There is increased thoracic kyphosis, some flattening of the lumbar lordotic curvature. Lumbar paraspinous muscles show symmetrical on inspection, on palpation shows some moderate tenderness diffusely throughout the upper, middle and lower distribution of the paraspinous muscles without specific trigger points, without radiation of pain. The patient has good rotational motion of the lumbar spine, both laterally as well as extension and flexion with significant tenderness with extension and axial loading lumbar spine better with forward flexion 45 degrees, right and left lateral rotation greater than 10 degrees shows moderate pain as well in the low back but without radiation to the lower extremities. No tenderness over the spinous processes, sacrum or sacroiliac regions. EXTREMITIES: Lower extremities show deep tendon reflexes 1+ in the patellar and tendo calcaneus tendons. Motor exam is 4 on a scale of 5 with right dorsiflexion, extension, quadriceps and hamstring flexion and 4/5 on the left. Peripheral pulses are 1+ posterior tibial. No peripheral edema is noted bilaterally. Lower extremities are warm and dry to touch, equal in color and appearance. SKIN: Shows warm and dry, good turgor. No edema. No sores, rashes or bruising throughout. Procedure: Procedure: Options were discussed with the patient. Patient chart was viewed as her cur rent medication regimen updated current review of systems updated today as well. We will preauthorize patient for bilateral L4-5 and L5-S1 facet medial branch blocks with fluoroscopic guidance. Patient will continue with stretching think exercise as well as oral analgesics as currently and once approved we will have her return for bilateral L4-5 and L5-S1 facet medial branch blocks with fluoroscopic guidance. Medication Injected: Med Injected: None Condition at Discharge: Condition at Discharge: Condition at discharge is stable. MARRY ROSE MD Sep 20, 2021 09:48
== END | disposition home or self-care (01) ==
LOC: PNCL 09:17
PROVIDERS: ATTEND Anesthesiology
DX: M47.816 Spondylosis without myelopathy or radiculopathy, lumbar region (principal); M47.817 Spondylosis without myelopathy or radiculopathy, lumbosacral region; M51.36 Other intervertebral disc degeneration, lumbar region; G89.29 Other chronic pain
CPT/HCPCS: 99212; G0463

== ENCOUNTER → 2021-10-04 | Outpatient (CLI) | payer MEDICARE ==
[2017-02-27 14:48] VITALS: BP 123/77
[~2021-10-04] MED LIST changes: +BUPIVACAINE MPF 0.25% 10 ML VIAL. ONE; +CRESTOR40 MG PO; +IOHEXOL 180 MG/ML 10 ML VIAL. ONE; +TRIA15CR TP; +methylPREDNISolone ACETATE 40 MG/ML VIAL. ONE; +methylPREDNISolone ACETATE 80 MG/ML VIAL. ONE
--- NOTE | 2021-10-04 09:17 | PDOC ---
Progress Note - Pain Clinic Date of Service: DOS: DATE: 10/04/21 TIME: 09:13 Diagnosis: Dx: Lumbar and lumbosacral spondylosis Lumbar radiculopathy with lumbar degenerative disc disease History or Present Illness: HPI: 66-year-old female returns for follow-up status post bilateral L4-5 and L5-S1 medial branch facet blocks patient reports about 80% improvement but only for about a week after the injections patient reports pain is returning now as a tightness sensation in the low back itself also some pain and cramping in the legs but no radiation to the legs patient reports it is worse with walking standing changing positions sitting for prolonged periods patient reports she has a new chair at work which is not as comfortable as used to be patient reports her pain is a 10 on scale 10 is worst least and average over the past week and is a 10 today patient works aching and tight tingling cramping stabbing can be severe and unbearable in the bilateral lower back right equal to left. Patient reports no bowel or bladder incontinence no loss of motor function patient reports wakes her from sleep about every 5-6 hours initially she was doing much better with distance walking sitting for prolonged periods doing work activities household activities and sleeping better but now this is returning difficulties all these areas. Patient reports no bowel or bladder incontinence. Physical Exam: VS: Blood pressure is 153/109 pulse 69 respirations 18 temperature 98.3 F weight is 237 pounds. PE: PHYSICAL EXAMINATION: GENERAL: The patient is awake, alert, oriented, appropriate, very pleasant in demeanor HEENT: Shows normocephalic, atraumatic. Extraocular movements are intact and symmetrical. Oral cavity: Mucous membranes moist and pink. Dentition is intact. NECK: Shows anterior throat supple without palpable lymphadenopathy noted. Swallow reflex symmetrical. CHEST: Shows normal on inspection. Breath sounds are clear bilaterally, distant no rales or rhonchi. HEART: Shows S1, S2 clear. No murmurs auscultated. ABDOMEN: Soft, nontender, nondistended, obese. No palpable organomegaly is noted. BACK: Shows spine grossly in the midline. Normal-appearing cervical lordotic curvature. There is slightly increased thoracic kyphosis, some minor flattening of the lumbar lordotic curvature. Lumbar paraspinous muscles show symmetrical on inspection, on palpation shows some moderate tenderness diffusely throughout the upper, middle and lower distribution of the paraspinous muscles without specific trigger points, without radiation of pain. The patient has good rotational motion of the lumbar spine, both laterally as well as extension and flexion with significant tenderness with extension and axial loading lumbar spine as well as right and left rotation of motion better with forward flexion of 45 degrees without significant pain. EXTREMITIES: Lower extremities show deep tendon reflexes 1 in the patellar and tendo calcaneus tendons. Motor exam is 4 on a scale of 5 with right dorsiflexion, extension, quadriceps and hamstring flexion and 4/5 on the left. Peripheral pulses are 1+ posterior tibial. No peripheral edema is noted allyson aterally. Lower extremities are warm and dry. SKIN: Shows warm and dry, good turgor. No edema. No sores, rashes or bruising throughout. Procedure: Procedure: Options were discussed with patient. Patient chart was reviewed as her current medication regimen updated current review of systems updated today as well. We will proceed with a bilateral L4-5 and L5-S1 facet medial branch blocks today with fluoroscopic guidance. Risks were discussed including but not limited to: Bleeding, infection, possibility of epidural hematoma and subsequent neurological compromise, dural puncture, headaches, spinal cord and/or nerve damage, side effects of steroid medication, and poor results regarding pain control. Patient understands and wished to proceed. Patient return to clinic in approximately 2 weeks for follow-up, was counseled return appointment, activity level, and side effect to be aware of. Medication Injected: Med Injected: Under sterile prep and drape using C-arm fluoroscopic guidance AP and lateral and oblique views, bilateral L4-5 and L5-S1 facet joint MB's injections were performed, using quinke needles with stylette's x4,, medications injected: 120 mg Depo-Medrol +4 cc 0.25% bupivacaine +2 cc contrast. Condition at discharge stable patient tolerated the procedure well and no complications. Condition at Discharge: Condition at Discharge: Condition at discharge stable, patient tolerated procedure well and had no complications. MARRY ROSE MD Oct 04, 2021 09:17
--- NOTE | 2021-10-04 09:18 | PDOC4 ---
Procedure Note: ICD 10 Code: ICD 10 Code: M4 7.816 M4 7.817 Procedure Note: Patient was consented for bilateral facet medial branch blocks with fluoroscopic guidance. Risks were discussed including but not limited to: Bleeding, infection, possibility of epidural hematoma and subsequent neurological compromise, dural puncture, headaches, spinal cord and/or nerve damage, side effects of steroid medication, and poor results regarding pain control. Patient understands and wished to proceed. Under sterile prep and drape using C-arm fluoroscopic guidance AP and lateral an d oblique views, bilateral L4-5 and L5-S1 facet joint MB's injections were performed, using quinke needles with stylette's x4,, medications injected: 120 mg Depo-Medrol +4 cc 0.25% bupivacaine +2 cc contrast. Condition at discharge stable patient tolerated the procedure well and no complications. MARRY ROSE MD Oct 04, 2021 09:17
== END | disposition home or self-care (01) ==
LOC: PNCL 08:40
PROVIDERS: ATTEND Anesthesiology
DX: M51.16 Intervertebral disc disorders with radiculopathy, lumbar region (principal); M47.817 Spondylosis without myelopathy or radiculopathy, lumbosacral region; M47.816 Spondylosis without myelopathy or radiculopathy, lumbar region; I10 Essential (primary) hypertension; E11.9 Type 2 diabetes mellitus without complications; E66.9 Obesity, unspecified; K21.9 Gastro-esophageal reflux disease without esophagitis; M19.90 Unspecified osteoarthritis, unspecified site; Z79.82 Long term (current) use of aspirin; Z79.84 Long term (current) use of oral hypoglycemic drugs; Z79.899 Other long term (current) drug therapy; Z98.51 Tubal ligation status; Z98.890 Other specified postprocedural states; Z88.0 Allergy status to penicillin; Z88.1 Allergy status to other antibiotic agents; Z88.8 Allergy status to other drugs, medicaments and biological substances
CPT/HCPCS: 64493; 64494; J1030; J1040; J3490; Q9965

== ENCOUNTER → 2021-10-12 | Outpatient (CLI) | payer MEDICARE ==
[2017-02-27 14:48] VITALS: BP 123/77
[~2021-10-12] MED LIST changes: -BUPIVACAINE MPF 0.25% 10 ML VIAL. ONE; -IOHEXOL 180 MG/ML 10 ML VIAL. ONE; -methylPREDNISolone ACETATE 40 MG/ML VIAL. ONE; -methylPREDNISolone ACETATE 80 MG/ML VIAL. ONE
--- NOTE | 2021-10-12 08:54 | PDOC ---
Progress Note - Pain Clinic Date of Service: DOS: DATE: 10/12/21 TIME: 08:50 Diagnosis: Dx: Lumbar and lumbosacral spondylosis History or Present Illness: HPI: 66-year-old female returns for follow-up status post bilateral L4-5 and L5-S1 medial branch facet blocks. Patient reports about 90% improvement for the first 2 weeks following the injection the pain is still improved but only about 50% cu rrently patient reports that the pain is a 10 on scale 10 is worse over the past week 9 on average 8 its least is an 8 today patient was aching and dull stabbing bilaterally without radiation to the lower extremities worse with standing walking changing positions sitting for prolonged periods getting up from a seated position and standing and is still position patient reports it feels "stiff" in the low back bilaterally right essentially equal to left patient reports no loss of motor function no bowel or bladder incontinence. Patient reports initially to do much better distance walking sitting for prolonged periods doing household activities work activities travel with greater ease and comfort and sleeping better at night patient reports still better with laying down generally not awaken her from sleep at night at this time. Physical Exam: VS: Blood pressure is 150/84 pulse 66 respirations 18 temperature 97.9 F weight is 236 pounds PE: PHYSICAL EXAMINATION: GENERAL: The patient is awake, alert, oriented, appropriate, very pleasant in demeanor HEENT: Shows normocephalic, atraumatic. Extraocular movements are intact and symmetrical. Oral cavity: Mucous membranes moist and pink. Dentition is intact. NECK: Shows anterior throat supple without palpable lymphadenopathy noted. Swallow reflex symmetrical. CHEST: Shows normal on inspection. Breath sounds are clear bilaterally, no rales or rhonchi. HEART: Shows S1, S2 clear. No murmurs auscultated. ABDOMEN: Soft, nontender, nondistended, obese. No palpable organomegaly is noted. No rebound or guarding demonstrated. BACK: Shows spine grossly in the midline. Normal-appearing cervical lordotic curvature. There is slightly increased thoracic kyphosis, some minor flattening of the lumbar lordotic curvature. Lumbar paraspinous muscles show symmetrical on inspection, on palpation shows some moderate tenderness diffusely throughout the upper, middle and lower distribution of the paraspinous muscles, but without specific trigger points, without radiation of pain. The patient has good rotational motion of the lumbar spine, both laterally as well as extension and flexion with significant tenderness with extension of the lumbar spine and axial loading of the low back as well as right and left lateral rotation greater than 10 degrees with moderate pain with in the low back with each maneuver but without radiation. Forward flexion is performed at 45 degrees without difficulty. No tenderness over the spinous processes, sacrum or sacroiliac regions. EXTREMITIES: Lower extremities show deep tendon reflexes 1+ in the patellar and tendo calcaneus tendons. Motor exam is 4 on a scale of 5 with right dorsiflexion, extension, quadriceps and hamstring flexion and 4/5 on the left. Peripheral pulses are 1 posterior tibial. No peripheral edema is noted bilaterally. Lower extremities are warm and dry to touch, equal in color and appearance. SKIN: Shows warm and dry, good turgor. No edema. No sores, rashes or bruising throughout. Procedure: Procedure: Options discussed with the patient. Patient chart was reviewed with her current medication regimen updated current review of systems updated today as well. We will preauthorize patient for repeat lumbar facet medial branch diagnostic blocks with fluoroscopic guidance. Patient did very well for several weeks following the injection with still some residual improvement even after 2 weeks. We did discuss potential radiofrequency ablation in the future if patient continues to do well with diagnostic facet repeat medial branch blocks. Patient will wait for preauthorization with her insurance provider, once approved will return for bilateral L4-5 and L5-S1 medial branch facet blocks with fluoroscopic guidance. In the meantime, patient continue with stretching strength exercises daily as well as oral analgesics and will start Neurontin 600 mg 3 times daily, prescription called in for patient today with instructions side effects aware discussed as well. Medication Injected: Med Injected: None Condition at Discharge: Condition at Discharge: Condition at discharge is stable. MARRY ROSE MD Oct 12, 2021 08:53
== END | disposition home or self-care (01) ==
LOC: PNCL 08:32
PROVIDERS: ATTEND Anesthesiology
DX: M47.817 Spondylosis without myelopathy or radiculopathy, lumbosacral region (principal); M47.816 Spondylosis without myelopathy or radiculopathy, lumbar region; I10 Essential (primary) hypertension; E66.9 Obesity, unspecified; E11.9 Type 2 diabetes mellitus without complications; K21.9 Gastro-esophageal reflux disease without esophagitis; M19.90 Unspecified osteoarthritis, unspecified site; Z79.82 Long term (current) use of aspirin; Z79.899 Other long term (current) drug therapy; Z98.51 Tubal ligation status; Z98.890 Other specified postprocedural states; Z88.0 Allergy status to penicillin; Z88.8 Allergy status to other drugs, medicaments and biological substances; Z88.6 Allergy status to analgesic agent
CPT/HCPCS: 99212; G0463

== ENCOUNTER → 2021-10-19 | Outpatient (CLI) | payer MEDICARE ==
[2017-02-27 14:48] VITALS: BP 123/77
[~2021-10-19] MED LIST changes: +BUPIVACAINE MPF 0.25% 10 ML VIAL. ONE; +IOHEXOL 180 MG/ML 10 ML VIAL. ONE; +methylPREDNISolone ACETATE 40 MG/ML VIAL. ONE; +methylPREDNISolone ACETATE 80 MG/ML VIAL. ONE
--- NOTE | 2021-10-19 10:25 | PDOC ---
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 History or Present Illness: HPI: 66-year-old female returns for follow-up status post medial branch facet blocks with approximately 80% improvement initially now about 50% improvement but still helping patient reports is sleeping better she is doing activities at home at work of my [employer] traveling and walking with greater distances with greater ease patient reports still pain in the low back bilaterally left and right right is slightly worse than the left worse with extending the lumbar spine standing for prolonged period sitting for prolonged periods changing positions is most noticeable when getting up from seated position and sitting from a standing position patient reports he is sleeping better and she has been spending a lot of time on her feet doing some cooking recently which is exacerbated the pain to some extent patient what is aching and dull tight can be tingling and cramping in the back sometimes unbearable but on and off in intensity patient rates as an 8 on scale 10 is worst 8 on average 7 its least is a 7 today. Patient reports no bowel or bladder incontinence. Physical Exam: VS: Blood pressure 131/74 pulse 75 respirations 18 temperature 98.2 F weight is 240 pounds PE: PHYSICAL EXAMINATION: GENERAL: The patient is awake, alert, oriented, appropriate, very pleasant in demeanor HEENT: Shows normocephalic, atraumatic. Extraocular movements are intact and symmetrical. Oral cavity: Mucous membranes moist and pink. Dentition is intact. NECK: Shows anterior throat supple without palpable lymphadenopathy noted. Swallow reflex symmetrical. CHEST: Shows normal on inspection. Breath sounds are clear bilaterally, distant but no rales or rhonchi. HEART: Shows S1, S2 clear. No murmurs auscultated. ABDOMEN: Soft, nontender, nondistended, obese. No palpable organomegaly is noted. BACK: Shows spine grossly in the midline. Normal-appearing cervical lordotic curvature. There is slightly increased thoracic kyphosis, some minor flattening of the lumbar lordotic curvature. Lumbar paraspinous muscles show symmetrical on inspection, on palpation shows some moderate tenderness diffusely throughout the upper, middle and lower distribution of the paraspinous muscles without specific trigger points, without radiation of pain. The patient has good rotational motion of the lumbar spine, both laterally as well as extension and flexion with significant tenderness with extension and axial loading lumbar spine both right and left forward flexion is performed without significant difficulty at 45 degrees right and left lateral rotation shows moderate tende rness bilaterally greater than 10 degrees rotation right and left somewhat more on the right side but without radiation to the lower extremities. EXTREMITIES: Lower extremities show deep tendon reflexes 1+ in the patellar and tendo calcaneus tendons. Motor exam is 4 on a scale of 5 with right dorsiflexion, extension, quadriceps and hamstring flexion and 4/5 on the left. Peripheral pulses are 1+ posterior tibial. No peripheral edema is noted bilaterally. Lower extremities are warm and dry. SKIN: Shows warm and dry, good turgor. No edema. No sores, rashes or bruising throughout. Procedure: Procedure: Options were discussed with the patient. Patient chart was reviewed as her current medication regimen updated current review of systems updated today as well. We will proceed with bilateral L4-5 and L5-S1 medial branch facet blocks today with fluoroscopic guidance. Risks were discussed including but not limited to: Bleeding, infection, possibility of epidural hematoma and subsequent neurological compromise, dural puncture, headaches, spinal cord and/or nerve damage, side effects of steroid medication, and poor results regarding pain control. Patient understands and wished to proceed. Patient will return to clinic in approximately 2 weeks for follow-up, was counseled as return appointment, activity level, and side effects to beware of. Medication Injected: Med Injected: Under sterile prep and drape using C-arm fluoroscopic guidance AP and lateral and oblique views, bilateral L4-5 and L5-S1 facet joint MB's injections were performed, using quinke needles with stylette's x4,, medications injected: 120 mg Depo-Medrol +4 cc 0.25% bupivacaine +2 cc contrast. Condition at discharge stable patient tolerated the procedure well and no complications. Condition at Discharge: Condition at Discharge: Condition at discharge stable, patient tolerated procedure well and had no complications. MARRY ROSE MD Oct 19, 2021 10:25
--- NOTE | 2021-10-19 10:26 | PDOC4 ---
Procedure Note: ICD 10 Code: ICD 10 Code: M4 7.816 M4 7.817 Procedure Note: Patient was consented for bilateral L4-5 and L5-S1 medial branch facet blocks with fluoroscopic guidance. Risks were discussed including but not limited to: Bleeding, infection, possibility of epidural hematoma and subsequent neurological compromise, dural puncture, headaches, spinal cord and/or nerve damage, side effects of steroid medication, and poor results regarding pain control. Patient understands and wished to proceed. Under sterile prep and drape using C-arm fluoroscopic guidance AP and lateral and oblique views, bilateral L4-5 and L5-S1 facet joint MB's injections were performed, using quinke needles with stylette's x4,, medications injected: 120 mg Depo-Medrol +4 cc 0.25% bupivacaine +2 cc contrast. Condition at discharge stable patient tolerated the procedure well and no complications. MARRY ROSE MD Oct 19, 2021 10:26
== END | disposition home or self-care (01) ==
LOC: PNCL 09:30
PROVIDERS: ATTEND Anesthesiology
DX: M47.817 Spondylosis without myelopathy or radiculopathy, lumbosacral region (principal); M47.816 Spondylosis without myelopathy or radiculopathy, lumbar region; M51.36 Other intervertebral disc degeneration, lumbar region; I10 Essential (primary) hypertension; E11.9 Type 2 diabetes mellitus without complications; E66.9 Obesity, unspecified; K21.9 Gastro-esophageal reflux disease without esophagitis; M19.90 Unspecified osteoarthritis, unspecified site; Z79.82 Long term (current) use of aspirin; Z79.899 Other long term (current) drug therapy; Z98.51 Tubal ligation status; Z98.890 Other specified postprocedural states; Z88.0 Allergy status to penicillin; Z88.1 Allergy status to other antibiotic agents; Z88.6 Allergy status to analgesic agent; Z88.8 Allergy status to other drugs, medicaments and biological substances
CPT/HCPCS: 64493; 64494; J1030; J1040; J3490; Q9965

== ENCOUNTER → 2021-10-25 | Outpatient (CLI) | payer MEDICARE ==
[2017-02-27 14:48] VITALS: BP 123/77
[~2021-10-25] MED LIST changes: -BUPIVACAINE MPF 0.25% 10 ML VIAL. ONE; -IOHEXOL 180 MG/ML 10 ML VIAL. ONE; -methylPREDNISolone ACETATE 40 MG/ML VIAL. ONE; -methylPREDNISolone ACETATE 80 MG/ML VIAL. ONE
--- NOTE | 2021-10-25 15:18 | CARD ---
MR#: [id number] Date of Study: 10/25/2021 Ordering Physician: NIRU BOWMAN, Referring Physician: NIRU BOWMAN, Tech: Rachel Matthews [facility] APPROVED REPORT EXAM: Two-dimensional and M-mode echocardiogram with Doppler and color Doppler. Other Information Quality : Technically LimitedHR: 71bpm Rhythm : NSR INDICATION Dyspnea RISK FACTORS Hypertension Obesity 2D DIMENSIONS RVDd2.4 (2.9-3.5cm)Left Atrium(2D)3.5 (1.6-4.0cm) IVSd1.3 (0.7-1.1cm)Aortic Root(2D)3.0 (2.0-3.7cm) LVDd4.1 (3.9-5.9cm)LVOT Diameter2.1 (1.8-2.4cm) PWd1.5 (0.7-1.1cm)LVDs3.1 (2.5-4.0cm) FS (%) 23.3 %SV34.6 ml Aortic Valve AoV Peak [place].144.4cm/sAoV VTI35.8cm AO Peak GR.8.3mmHgLVOT Peak [place].70.2cm/s AO Mean GR.5mmHgAVA (VMAX)1.61cm2 Mitral Valve MV E Tvhvtxwt35.3cm/sMV DECEL RAVQ502pg MV A Hgrepgvw789.5cm/sE/A Ratio0.7 Pulmonary Valve PV Peak Otaiiqas04.2cm/s LEFT VENTRICLE The left ventricle is normal size. There is mild concentric left ventricular hypertrophy. The left ve ntricular systolic function is normal and the ejection fraction is within normal range. LV ejection f raction of 55 to 60%. There is normal LV segmental wall motion. Transmitral Doppler flow pattern is Grade I-abnormal relaxation pattern. RIGHT VENTRICLE The right ventricle is normal size. There is normal right ventricular wall thickness. The right ventr icular systolic function is normal. ATRIA The left atrium size is normal. The right atrium size is normal. The interatrial septum is intact wit h no evidence for an atrial septal defect or patent foramen ovale as noted on 2-D or Doppler imaging. AORTIC VALVE The aortic valve is normal in structure and function. Doppler and Color Flow revealed no significant aortic regurgitation. There is no significant aortic valvular stenosis. MITRAL VALVE The mitral valve is normal in structure and function. There is no evidence of mitral valve prolapse. There is no mitral valve stenosis. Doppler and Color Flow revealed trace mitral valve regurgitation. TRICUSPID VALVE The tricuspid valve is normal in structure and function. Doppler and Color Flow revealed no tricuspid valve regurgitation noted. There is no tricuspid valve stenosis. PULMONIC VALVE The pulmonary valve is normal in structure and function. Doppler and Color Flow revealed no pulmonic valvular regurgitation. GREAT VESSELS The aortic root is normal in size. The ascending aorta is normal in size. The IVC is normal in size a nd collapses >50% with inspiration. PERICARDIAL EFFUSION There is no evidence of significant pericardial effusion. Critical Notification Critical Value: No <Conclusion> The left ventricle is normal size. The left ventricular systolic function is normal and the ejection fraction is within normal range. LV ejection fraction of 55 to 60%. There is mild concentric left ventricular hypertrophy. Doppler and Color Flow revealed no significant aortic regurgitation. There is no significant aortic valvular stenosis. Doppler and Color Flow revealed trace mitral valve regurgitation. Doppler and Color Flow revealed no tricuspid valve regurgitation. Signed by : Keven Larkin MD Electronically Approved : 10/25/2021 15:17:55
== END ==
LOC: ECHO 10:54
PROVIDERS: ATTEND Internal Medicine Cardiovascular Disease
DX: I51.7 Cardiomegaly (principal); I10 Essential (primary) hypertension; R06.00 Dyspnea, unspecified
CPT/HCPCS: 93306

== ENCOUNTER → 2021-10-25 | Outpatient (CLI) | payer OTHER ==
[2017-02-27 14:48] VITALS: BP 123/77
--- NOTE | 2021-10-25 13:10 | KCIC ---
EXAM: CT coronary artery calcium screening; radiologist over read. HISTORY: Cardiovascular screening. Family history of heart disease. TECHNIQUE: Computed tomographic images of the chest were obtained without contrast. Multiplanar refor matting was performed. *One or more of the following individualized dose reduction techniques were utilized for this examina tion: 1. Automated exposure control. 2. Adjustment of the mA and/or kV according to patient size. 3. Use of iterative reconstruction technique. COMPARISON: None. FINDINGS: The heart is normal in size. There is calcified atherosclerotic plaque involving the perrin ry arteries. There is no lymphadenopathy. There is no infiltrate, pleural effusion or pneumothorax. T here is no suspicious pulmonary nodule. There is basilar atelectasis. There is a small left lower lob e cyst or pneumatocele. There is no acute finding involving the upper abdomen or osseous structures. Coronary artery calcium score: Left main artery - 0 Left anterior descending - 7.2 Left circumflex - 78.3 Right coronary artery - 2.1 Posterior descending artery - 0 TOTAL = 87.6 IMPRESSION: 1. Coronary artery calcium score of 87.6. There is there is calcified atherosclerotic plaque involvin g the coronary arteries. There is moderate cardiac risk. 2. No acute thoracic finding. Electronically signed by: Rachel Baugh MD (10/25/2021 1:08 PM) [id number]
== END ==
LOC: KCIC CT 12:20
PROVIDERS: ATTEND Internal Medicine Cardiovascular Disease
DX: I25.10 Atherosclerotic heart disease of native coronary artery without angina pectoris (principal); J98.11 Atelectasis; J98.4 Other disorders of lung; Z82.49 Family history of ischemic heart disease and other diseases of the circulatory system
CPT/HCPCS: 75571

== ENCOUNTER → 2021-12-07 | Outpatient (CLI) | payer MEDICARE ==
[2017-02-27 14:48] VITALS: BP 123/77
[~2021-12-07] MED LIST changes: +BUPIVACAINE MPF 0.25% 10 ML VIAL. ONE; +IOHEXOL 180 MG/ML 10 ML VIAL. ONE; +methylPREDNISolone ACETATE 80 MG/ML VIAL. ONE
--- NOTE | 2021-12-07 12:34 | PDOC ---
Progress Note - Pain Clinic Date of Service: DOS: DATE: 12/07/21 TIME: 12:28 Diagnosis: Dx: Lumbar spondylosis and lumbosacral spondylosis Lumbar degenerative disc disease History or Present Illness: HPI: 66-year-old female returns for follow-up status post bilateral L4-5 and L5-S1 facet medial branch blocks last seen October 09, 20182020. Patient reports she did well initially but the pain returned fairly quickly where usually she does very well for several weeks to months the pain returned fairly significantly fairly quickly within about 2 weeks the pain was excruciating the low back to the point where she went to her primary physician and had a Toradol IM injection about 1 week ago. Patient reports that did decrease the pain but is still significant in the low back bilaterally worse on the right side significantly worse with sitting sitting for prolonged periods greater than 10 to 15 minutes also getting up from a seated position or sitting from a standing position as well as walking and standing still patient report is aching sharp tight stabbing can be constant severe and unbearable in the low back itself much less on the left side but present bilaterally. Patient reports the Toradol significantly reduced the pain for several days following the injection but returned fairly quickly as well over the next day. Patient reports it wakes her from sleep about 2-3 times a night and reports that she is just ordered a new mattress for her bed which is she is hoping will decrease the pain she is having at night as well. We discussed patient's medication regimen and she has a new muscle relaxer which she has not filled yet also we discussed anti-inflammatories she has Celebrex available but is not taking it we will describe new medication of meloxicam 15 mg once daily patient was given instructions as well as side effects beware of with the medication. Physical Exam: VS: Blood pressure is 130/83 pulse 81 respirations 18 temperature 98.0, height is 5 foot 8 inches weight is 241 pounds. PE: PHYSICAL EXAMINATION: GENERAL: The patient is awake, alert, oriented, appropriate, very pleasant in demeanor HEENT: Shows normocephalic, atraumatic. Extraocular movements are intact and symmetrical. Oral cavity: Mucous membranes moist and pink. Dentition is intact. NECK: Shows anterior throat supple without palpable lymphadenopathy noted. Swallow reflex symmetrical. CHEST: Shows normal on inspection. Breath sounds are clear bilaterally, distant but no rales or rhonchi auscultated. HEART: Shows S1, S2 clear. No murmurs auscultated. ABDOMEN: Soft, nontender, nondistended, obese. No palpable organomegaly is noted. BACK: Shows spine grossly in the midline. Normal-appearing cervical lordotic curvature. There is slightly increased thoracic kyphosis, some minor flattening of the lumbar lordotic curvature. Lumbar paraspinous muscles show symmetrical on inspection, on palpation shows some moderate tenderness diffusely throughout the upper, middle and lower distribution of the paraspinous muscles, but without specific trigger points, without radiation of pain. The patient has good rotational motion of the lumbar spine, both laterally as well as extension and flexion with significant tenderness with right lateral rotation greater than 10 degrees as well as extension and axial loading lumbar spine significant tenderness in the right lower low back but also mild pain on the left. This is better with forward flexion at 45 degrees which is performed fully but still with some moderate pain on the right side. EXTREMITIES: Lower extremities show deep tendon reflexes 1+ in the patellar and tendo calcaneus tendons. Motor exam is 4 on a scale of 5 with right dorsiflexion, extension, quadriceps and hamstring flexion and 4/5 on the left. Peripheral pulses are 1+ posterior tibial. No peripheral edema is noted bilaterally. Lower extremities are warm and dry. SKIN: Shows warm and dry, good turgor. No edema. No sores, rashes or bruising throughout. Procedure: Procedure: Options discussed with patient. Patient's old chart was viewed as her current medication regimen updated review of systems updated today as well. We will proceed with bilateral L4-5 and L5-S1 facet medial branch blocks today with fluoroscopic guidance. Risks were discussed including but not limited to: Bleeding, infection, possibility of epidural hematoma and subsequent neurologic al compromise, dural puncture, headaches, spinal cord and/or nerve damage, side effects of steroid medication, and poor results regarding pain control. Patient understands and wished to proceed. Patient was given instructions with the new medication of meloxicam once daily as well as side effects to be aware of. Patient will return to clinic in approximately 2 weeks for follow-up, was counseled as to return appointment, activity level, and side effect to be aware of. Medication Injected: Med Injected: Under sterile prep and drape using C-arm fluoroscopic guidance AP and lateral and oblique views, bilateral L4-5 and L5-S1 facet joint MB's injections were performed, using quinke needles with stylette's x4,, medications injected: 120 mg Depo-Medrol +4 cc 0.25% bupivacaine +2 cc contrast. Condition at discharge stable patient tolerated the procedure well and no complications. Condition at Discharge: Condition at Discharge: Condition at discharge stable, paced tolerated procedure well and had no complications. MARRY ROSE MD Dec 07, 2021 12:33
--- NOTE | 2021-12-07 12:34 | PDOC4 ---
Procedure Note: ICD 10 Code: ICD 10 Code: M4 7.16 M4 7.817 Procedure Note: Patient was consented for bilateral lumbar facet medial branch blocks L4-5 and L5-S1 levels with fluoroscopic guidance. Risks were discussed including but not limited to: Bleeding, infection, possibility of epidural hematoma and subsequent neurological compromise, dural puncture, headaches, spinal cord and/or nerve damage, side effects of steroid medication, and poor results regarding pain control. Patient understands and wished to proceed. Under sterile prep and drape using C-arm fluoroscopic guidance AP and lateral and oblique views, bilateral L4-5 and L5-S1 facet joint MB's injections were performed, using quinke needles with stylette's x4,, medications injected: 120 mg Depo-Medrol +4 cc 0.25% bupivacaine +2 cc contrast. Condition at discharge stable patient tolerated the procedure well and no complications. MARRY ROSE MD Dec 07, 2021 12:34
== END | disposition home or self-care (01) ==
LOC: PNCL 11:41
PROVIDERS: ATTEND Anesthesiology
DX: M47.817 Spondylosis without myelopathy or radiculopathy, lumbosacral region (principal); M47.816 Spondylosis without myelopathy or radiculopathy, lumbar region; M51.36 Other intervertebral disc degeneration, lumbar region; I10 Essential (primary) hypertension; E66.9 Obesity, unspecified; K21.9 Gastro-esophageal reflux disease without esophagitis; M19.90 Unspecified osteoarthritis, unspecified site; E11.9 Type 2 diabetes mellitus without complications; Z98.51 Tubal ligation status; Z79.82 Long term (current) use of aspirin; Z79.899 Other long term (current) drug therapy; Z98.890 Other specified postprocedural states; Z88.0 Allergy status to penicillin; Z88.8 Allergy status to other drugs, medicaments and biological substances; Z88.1 Allergy status to other antibiotic agents; Z88.6 Allergy status to analgesic agent
CPT/HCPCS: 64493; 64494; J1040; J3490; Q9965